=== PATIENT | male | born 1970 | race Caucasian/White ===

== ENCOUNTER 2022-04-22 11:10 | Inpatient (IN) | payer MEDICAID, SELFPAY ==
--- NOTE | ~2022-04-22 | CT_ITS ---
EXAMINATION: CT ANGIOGRAM OF THE CHEST WITH AND WITHOUT CONTRAST (CT PULMONARY ANGIOGRAM FOR PE) CLINICAL INFORMATION: Hemoptysis. COMPARISON: Chest radiographs dated 04/22/2022. TECHNIQUE: Prior to contrast administration, noncontrast localization images were obtained. Subsequently, multidetector volumetric imaging was performed from the thoracic inlet to below the diaphragms following the administration of 80 mL Omnipaque 350 intravenous contrast. No contrast reaction reported Sagittal, coronal, and MIP oblique sagittal reformatted images were obtained on the CT workstation, uploaded to PACS, and reviewed. This CT examination was performed using dose optimization techniques as appropriate, variously including the following: *Automated exposure control *Adjustment of mA and/or kV according to patient size (this includes techniques or standardized protocols for targeted exams where dose is matched to indication/reason for exam; i.e. extremities or head) *Use of iterative reconstruction technique Total exam dose-length product 361 mGy-cm FINDINGS: QUALITY OF STUDY/CONTRAST BOLUS: Satisfactory. PULMONARY ARTERIES: No central or segmental pulmonary emboli. THORACIC AORTA: No aneurysm or dissection. LUNG: No focal consolidation, nodules or masses. There is mild linear atelectasis within the lower lobes, right greater than left. PLEURA: No pleural effusion or pneumothorax. MEDIASTINUM: Normal heart size. No pericardial effusion. No hilar or mediastinal lymphadenopathy. No evidence of septal bowing or right heart strain. CHEST WALL/AXILLA: No axillary or internal mammary lymphadenopathy. OSSEOUS STRUCTURES: There is multi-level mild thoracic spondylosis and Schmorl's node formation. Schmorl's nodes are most pronounced of the T5 and T7 upper endplates. No acute or aggressive osseous abnormality is seen. UPPER ABDOMEN: Diffuse hepatic steatosis. No reflux of contrast into the hepatic veins to suggest elevated right heart pressures. The adrenal glands are unremarkable. CT/CT angio chest PE protocol IMPRESSION: 1. No pulmonary embolus or thoracic aortic aneurysm or dissection is seen. 2. There is bilateral lower lobe atelectatic change, right greater than left. No focal infiltrate is noted. 3. There is no pleural effusion or pneumothorax. 4. No thoracic lymphadenopathy or pleural effusion is seen. 5. No acute or aggressive osseous finding is noted. 6. There is diffuse hepatic steatosis. VTE: negative
--- NOTE | ~2022-04-22 | XR_ITS ---
EXAMINATION: XR CHEST CLINICAL INFORMATION: Injury. Chest pain. COMPARISON: None TECHNIQUE: 2 views of the chest were obtained. FINDINGS: Limited lateral view. No significant abnormality is noted involving the heart, lungs, mediastinum, bony thorax or soft tissues. XR/XR chest 2V IMPRESSION: Unremarkable examination.
[2022-04-22 10:52] VITALS: BP 114/86; PULSE 72; O2SAT 98
[2022-04-22 10:56] VITALS: BP 109/65; PULSE 71; RESP 18; TEMP 36.1; O2SAT 97; BMI 24.7
--- NOTE | 2022-04-22 16:56 | ECG_ITS ---
Test Reason : CHEST TIGHTNESS Blood Pressure : / mmHG Vent. Rate : 079 BPM Atrial Rate : 079 BPM P-R Int : 190 ms QRS Dur : 080 ms QT Int : 398 ms P-R-T Axes : 065 057 050 degrees QTc Int : 456 ms Normal sinus rhythm Septal infarct , age undetermined Abnormal ECG No previous ECGs available Referred By: Brisa Siddiqi Electronically Signed By:TRIPP DAVILA
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
[2022-04-22 17:09] VITALS: BP 107/68; PULSE 77; RESP 16; O2SAT 99
[2022-04-22 17:21] LABS: MANUAL DIFF FLAG NO
[2022-04-22 17:26] LABS: Basophils Absolute Auto 0.1 X10*3/uL (0.0-0.2); Basophils Percent Auto 1.3 % (0-2); Eosinophils Absolute Auto 0.1 X10*3/uL (0.0-0.4); Hematocrit 38.6 % (42.0-52.0); Hemoglobin 13.1 g/dl (14.0-18.0); Imm Gran Abs Auto 0.02 X10*3/uL (0.00-0.03); Imm Gran Pct Auto 0.4 % (0.0-0.4); Lymphocytes Absolute Auto 1.3 X10*3/uL (1.2-4.9); Lymphocytes Percent Auto 27.9 % (20-40); Mean Corpuscular HGB Conc 33.9 g/dl (31.0-36.0); Mean Corpuscular Hemoglobin 34.7 pg (27.0-33.0); Mean Corpuscular Volume 102.1 fL (80.0-98.0); Mean Platelet Volume 8.4 fL (9.4-12.4); Monocytes Absolute Auto 0.3 X10*3/uL (0.1-1.2); Monocytes Percent Auto 6.8 % (2-11); Neutrophils Absolute Auto 2.8 x10*3/uL (2.0-8.3); Neutrophils Percent Auto 61.6 % (45-73); Platelet Count 385 X10*3/uL (160-400); Red Blood Count 3.78 X10*6/uL (4.60-5.80); White Blood Count 4.6 X10*3/uL (4.8-10.8)
[2022-04-22 17:44] LABS: Troponin-I High Sensitivity 7.6 ng/L (<3.5-35.0)
[2022-04-22 17:47] LABS: Alanine Aminotransferase 54 U/L (0-40); Albumin Level 4.1 g/dL (3.5-5.0); Alkaline Phosphatase 68 U/L (39-117); Anion Gap 21 (12-20); Aspartate Amino Transferase 68 U/L (5-37); Bilirubin Direct 0.2 mg/dL (0.0-0.5); Bilirubin Total 0.5 mg/dL (0.0-1.0); Blood Urea Nitrogen 40 mg/dL (9-16); Calcium 8.9 mg/dL (8.4-10.2); Carbon Dioxide 16 mmol/L (22-29); Chloride 107 mmol/L (96-108); Creatinine Clr Calc Pharmacy 46.7; Estimated Glomerular Filt Rate 42; Glucose Random 80 mg/dL (60-115); INTERNATIONAL NORM RATIO 0.9 (0.9-1.1); Potassium 3.8 mmol/L (3.3-5.1); Prothrombin Time 10.1 SEC (10.0-13.1); Sodium 140 mmol/L (135-145); Total Protein 7.2 g/dL (6.5-8.0)
[2022-04-22 18:09] LABS: VBG Base Excess -8.9 mmol/L; VBG HCO3 15 mmol/L (22-26); VBG pCO2 30 mmHg; VBG pH 7.31 (7.32-7.43); VBG pO2 88 mmHg
[2022-04-22 18:14] LABS: Venous Blood Gas Refer to POC result
[2022-04-22 18:23] LABS: Appearance Urine Clear; Color Urine Yellow; Glucose Urine UA Negative (Negative); Leukocyte Esterase Urine Negative (Negative); Nitrite Urine Negative (Negative); PH 6.5 (5.0-8.0); Specific Gravity - Urine <= 1.005 (1.005-1.025); Urine Blood Negative (Negative); Urine Ketones Negative (Negative); Urine Protein Negative (Neg-Trace)
[2022-04-22 18:23] LABS: D Dimer High Sensitivity 1086 NG/ML
[2022-04-22 18:25] LABS: Acetaminophen LAB < 1 mcg/mL (<30); Ethanol 229 mg/dL; Lipase 61 U/L (8-78); Salicylate < 5.0 mg/dL (15-30)
[2022-04-22] MEDS: 0.9 % Sodium Chloride 2,000 ML 999 ML IV (20:03)
--- NOTE | 2022-04-22 20:06 | PC.NURSE ---
IV placed in left AC. NS 1l HUNG AND RUNNING.
[2022-04-22 20:07] VITALS: BP 110/68; PULSE 83; RESP 16; TEMP 36.6; O2SAT 100
[2022-04-22] MEDS: iohexoL 350 MG/ML 100 ML INFUS..BTL IV (20:41)
[2022-04-22 23:32] LABS: Anion Gap 23 (12-20); Blood Urea Nitrogen 32 mg/dL (9-16); Calcium 8.1 mg/dL (8.4-10.2); Carbon Dioxide 12 mmol/L (22-29); Chloride 111 mmol/L (96-108); Creatinine Clr Calc Pharmacy 58.9; Estimated Glomerular Filt Rate 56; Glucose Random 61 mg/dL (60-115); Potassium 4.7 mmol/L (3.3-5.1); Sodium 141 mmol/L (135-145)
[2022-04-22 23:36] LABS: Troponin-I High Sensitivity 10.8 ng/L (<3.5-35.0)
[2022-04-23 00:24] LABS: Acetone, serum QL Negative (Negative)
[2022-04-23] MEDS: Dextrose 5 % and 0.45 % NaCl 1,000 ML 250 ML IVCONT (00:42)
[2022-04-23 00:47] VITALS: BP 99/63; PULSE 83; RESP 17; O2SAT 96
[2022-04-23] MEDS: Thiamine HCL 100 MG in 0.9 % Sodium Chloride 100 ML 202 MG IV (00:47)
[2022-04-23] MEDS: Magnesium Sulfate/H2O 2 GM/50 ML PIGGYBACK IV ×2 (00:52→17:43)
[2022-04-23 01:01] LABS: Lactic Acid 3.1 mmol/L (0.5-2.0)
[2022-04-23 01:02] LABS: COVID-19 Test Negative (Negative)
[2022-04-23 01:02] LABS: Magnesium 1.2 mg/dL (1.6-2.6)
[2022-04-23] MEDS: Dextrose 5 % and 0.9 % NaCl 1,000 ML 100 ML IVCONT ×3 (01:32→14:48)
[2022-04-23 02:04] LABS: Reflex Lactate? Lactic Acid Added
[2022-04-23 03:02] LABS: ~Lactic Acid-LAB USE ONLY 2.8 mmol/L (0.5-2.0)
--- NOTE | 2022-04-23 03:02 | PC.NURSE ---
critical lactic report to provider.
[2022-04-23 04:39] LABS: Reflex Lactate? 2 Y
[2022-04-23 04:54] LABS: MANUAL DIFF FLAG NO
[2022-04-23 04:55] LABS: Basophils Percent Auto 0.7 % (0-2); Eosinophils Absolute Auto 0.1 X10*3/uL (0.0-0.4); Eosinophils Percent Auto 1.3 % (0-4); Hematocrit 34.1 % (42.0-52.0); Hemoglobin 11.8 g/dl (14.0-18.0); Imm Gran Abs Auto 0.01 X10*3/uL (0.00-0.03); Imm Gran Pct Auto 0.2 % (0.0-0.4); Lymphocytes Percent Auto 16.9 % (20-40); Mean Corpuscular HGB Conc 34.6 g/dl (31.0-36.0); Mean Corpuscular Hemoglobin 35.1 pg (27.0-33.0); Mean Corpuscular Volume 101.5 fL (80.0-98.0); Mean Platelet Volume 8.5 fL (9.4-12.4); Monocytes Absolute Auto 0.4 X10*3/uL (0.1-1.2); Monocytes Percent Auto 6.7 % (2-11); Neutrophils Absolute Auto 4.5 x10*3/uL (2.0-8.3); Neutrophils Percent Auto 74.2 % (45-73); Platelet Count 332 X10*3/uL (160-400); Red Blood Count 3.36 X10*6/uL (4.60-5.80); Red Cell Distribution Width 16.2 % (11.0-16.0); White Blood Count 6.1 X10*3/uL (4.8-10.8)
[2022-04-23 05:08] LABS: Anion Gap 20 (12-20); Blood Urea Nitrogen 27 mg/dL (9-16); Calcium 8.3 mg/dL (8.4-10.2); Carbon Dioxide 15 mmol/L (22-29); Chloride 112 mmol/L (96-108); Creatinine Clr Calc Pharmacy 64.1; Estimated Glomerular Filt Rate > 60; Glucose Random 81 mg/dL (60-115); Potassium 4.2 mmol/L (3.3-5.1); Sodium 143 mmol/L (135-145)
[2022-04-23 05:10] LABS: ~Lactic Acid-LAB USE ONLY 2.2 mmol/L (0.5-2.0)
[2022-04-23 05:22] VITALS: BP 131/77; PULSE 96; RESP 20; TEMP 37.1; O2SAT 97
--- NOTE | 2022-04-23 06:11 | PM.IMHP ---
History of Present Illness Date of Service: 04/23/22 Chief Complaint: chest pain 52-year-old male with past medical history of hypertension as well as alcohol abuse presents to the hospital with complaints of left-sided chest pain that has been constant for the past 3-4 weeks. The pain is sharp, stabbing, nonradiating, no relieving or exacerbating factors. Patient reports nausea with no vomiting, he reports that he drinks about 16 oz beer daily, he is currently jittery and anxious but denies withdrawing, his last drink was over 12 hours ago, he reports no shortness of breath, no cough, no abdominal pain, no diarrhea constipation, no urinary symptoms and no lower extremity edema. On arrival to the ED patient hemodynamically stable with no significant abnormal vitals Labs are significant for WBC count of 4.6, hemoglobin 13.1, hematocrit 30.6, MCV of 102, pH of 7.31, bicarb of 15, positive anion gap, BUN 40, creatinine of 1.69 with a baseline of less than 1, lactic acid of 3.1, AST of 68, ALT of 54, patient started on IV fluids with slight worsening of his bicarb, but then switched to D5 fluid with improvement in his bicarb Review of Systems Review of Systems: Yes all other systems are reviewed and are negative [facility] Medical History (Updated 04/23/22 @ 06:24 by Med Cazares MD) History of alcohol abuse Hypertension Rib fracture Family History (Updated 04/23/22 @ 06:23 by Med Cazares MD) Other No family history of coronary artery disease Surgical History (Updated 04/23/22 @ 06:23 by Med Cazares MD) No pertinent past surgical history Social History (Updated 04/23/22 @ 06:23 by Med Cazares MD) Alcohol intake: current Alcohol intake frequency: 0-2 drinks per day Alcohol type: beer Tobacco use type: Cigarette Cigarettes Per Day: 5 Use of substances other than those prescribed or required for medical reasons: No Advance Directives: No Advance Directives Information Provided: Yes Meds Allergies Allergy/AdvReac Type Severity Reaction Status Date / Time No Known Allergies Allergy Verified 04/22/22 10:52 Active Medications: Current Medications Acetaminophen (Acetaminophen 325 Mg Tablet) 650 mg PO Q6H PRN PRN Reason: Pain, Mild (Pain Scale 1-3) Docusate Sodium (Docusate Sodium 100 Mg Capsule) 100 mg PO DAILY PRN PRN Reason: Constipation Enoxaparin Sodium (Enoxaparin Sodium 40 Mg/0.4 Ml Syringe) 40 mg SUBCUT Q24H [facility] Folic Acid (Folic Acid 1 Mg Tablet) 1 mg PO DAILY [facility] Dextrose/Sodium Chloride (D51/2ns) 1,000 mls @ 250 mls/hr IVCONT .Q4H [facility] Last Admin: 04/23/22 05:14 Dose: Not Given Dextrose/Sodium Chloride (D5ns) 1,000 mls @ 100 mls/hr IVCONT .Q10H [facility] Last Admin: 04/23/22 01:32 Dose: 100 mls/hr Ondansetron HCl (Ondansetron Hcl 4 Mg/2 Ml Vial) 4 mg IVPUSH Q8H PRN PRN Reason: Nausea and Vomiting Pharmacy Consult (Consult Rx Perform Med Rec) 1 each MISCELLANE ONCE PRN PRN Reason: Consult order Sodium Chloride (0.9 % Sodium Chloride Flush 3 Ml Syringe) 3 ml IVFLUSH QSHIFT [facility] Thiamine HCl (Thiamine Hcl 100 Mg Tablet) 100 mg PO DAILY [facility] Physical Exam Vital Signs and Narrative: Vital Signs: Last Vital Signs Temp 98.8 F 04/23/22 05:22 Pulse 96 04/23/22 05:22 Resp 20 04/23/22 05:22 BP 131/77 04/23/22 05:22 Pulse Ox 97 04/23/22 05:22 O2 Del Method 04/23/22 05:22 BMI result Body Mass Index 24.7 Results Labs CBC and Chem 7: 04/23/22 04:51 04/23/22 04:51 Labs: Laboratory Results - last 24 hr 04/22/22 04/22/22 04/22/22 17:13 17:13 17:13 MCV 102.1 H MCH 34.7 H MCHC 33.9 RDW 16.0 Plt Count 385 MPV 8.4 L Immature Gran % (Auto) 0.4 Neut % (Auto) 61.6 Lymph % (Auto) 27.9 [place] % (Auto) 6.8 Eos % (Auto) 2.0 Baso % (Auto) 1.3 Lymph # (Auto) 1.3 [place] # (Auto) 0.3 Eos # (Auto) 0.1 Baso # (Auto) 0.1 Abs Immat Gran (auto) 0.02 Absolute Neuts (auto) 2.8 Absolute Nucleated RBC 0.000 Nucleated RBC % (auto) 0.0 PT 10.1 INR 0.9 D-Dimer High Sensitivty 1086 VBG pH VBG pCO2 VBG pO2 VBG HCO3 VBG O2 Saturation VBG Base Excess Anion Gap 21 H Estim Creat Clear Calc 46.7 Estimated GFR 42 Random Glucose 80 Lactic Acid Lactic Acid F/U @ 2Hr Lactic Acid F/U @ 4Hr Calcium 8.9 Phosphorus Magnesium Total Bilirubin 0.5 Direct Bilirubin 0.2 AST 68 H ALT 54 H Alkaline Phosphatase 68 Total Creatine Kinase 138 Total Protein 7.2 Albumin 4.1 Lipase 61 Urine Color Urine Appearance Urine pH Ur Specific [place] Urine Protein Urine Glucose (UA) Urine Ketones Urine Blood Urine Nitrite Ur Leukocyte Esterase Salicylates < 5.0 L Acetaminophen < 1 Ethyl Alcohol 229 Acetone, Qual COVID-19 (ANA) COVID-19 [employer] 04/22/22 04/22/22 04/22/22 17:58 18:04 22:59 MCV MCH MCHC RDW Plt Count MPV Immature Gran % (Auto) Neut % (Auto) Lymph % (Auto) [place] % (Auto) Eos % (Auto) Baso % (Auto) Lymph # (Auto) [place] # (Auto) Eos # (Auto) Baso # (Auto) Abs Immat Gran (auto) Absolute Neuts (auto) Absolute Nucleated RBC Nucleated RBC % (auto) PT INR D-Dimer High Sensitivty VBG pH 7.31 L VBG pCO2 30 VBG pO2 88 VBG HCO3 15 L VBG O2 Saturation 95.0 VBG Base Excess -8.9 Anion Gap 23 H Estim Creat Clear Calc 58.9 Estimated GFR 56 Random Glucose 61 Lactic Acid Lactic Acid F/U @ 2Hr Lactic Acid F/U @ 4Hr Calcium 8.1 L D Phosphorus Magnesium Total Bilirubin Direct Bilirubin AST ALT Alkaline Phosphatase Total Creatine Kinase Total Protein Albumin Lipase Urine Color Yellow Urine Appearance Clear Urine pH 6.5 Ur Specific [place] <= 1.005 Urine Protein Negative Urine Glucose (UA) Negative Urine Ketones Negative Urine Blood Negative Urine Nitrite Negative Ur Leukocyte Esterase Negative Salicylates Acetaminophen Ethyl Alcohol Acetone, Qual COVID-19 (ANA) COVID-19 [employer] 04/23/22 04/23/22 04/23/22 00:00 00:00 00:33 MCV MCH MCHC RDW Plt Count MPV Immature Gran % (Auto) Neut % (Auto) Lymph % (Auto) [place] % (Auto) Eos % (Auto) Baso % (Auto) Lymph # (Auto) [place] # (Auto) Eos # (Auto) Baso # (Auto) Abs Immat Gran (auto) Absolute Neuts (auto) Absolute Nucleated RBC Nucleated RBC % (auto) PT INR D-Dimer High Sensitivty VBG pH VBG pCO2 VBG pO2 VBG HCO3 VBG O2 Saturation VBG Base Excess Anion Gap Estim Creat Clear Calc Estimated GFR Random Glucose Lactic Acid 3.1 H* Lactic Acid F/U @ 2Hr Lactic Acid F/U @ 4Hr Calcium Phosphorus 3.0 Magnesium 1.2 L* Total Bilirubin Direct Bilirubin AST ALT Alkaline Phosphatase Total Creatine Kinase Total Protein Albumin Lipase Urine Color Urine Appearance Urine pH Ur Specific [place] Urine Protein Urine Glucose (UA) Urine Ketones Urine Blood Urine Nitrite Ur Leukocyte Esterase Salicylates Acetaminophen Ethyl Alcohol Acetone, Qual Negative COVID-19 (ANA) Negative COVID-19 Clin Com See Note 04/23/22 04/23/22 04/23/22 02:34 04:51 04:51 MCV 101.5 H MCH 35.1 H MCHC 34.6 RDW 16.2 H Plt Count 332 MPV 8.5 L Immature Gran % (Auto) 0.2 Neut % (Auto) 74.2 H Lymph % (Auto) 16.9 L [place] % (Auto) 6.7 Eos % (Auto) 1.3 Baso % (Auto) 0.7 Lymph # (Auto) 1.0 L [place] # (Auto) 0.4 Eos # (Auto) 0.1 Baso # (Auto) 0.0 Abs Immat Gran (auto) 0.01 Absolute Neuts (auto) 4.5 Absolute Nucleated RBC 0.000 Nucleated RBC % (auto) 0.0 PT INR D-Dimer High Sensitivty VBG pH VBG pCO2 VBG pO2 VBG HCO3 VBG O2 Saturation VBG Base Excess Anion Gap 20 Estim Creat Clear Calc 64.1 Estimated GFR > 60 Random Glucose 81 Lactic Acid Lactic Acid F/U @ 2Hr 2.8 H* Lactic Acid F/U @ 4Hr Calcium 8.3 L Phosphorus Magnesium Total Bilirubin Direct Bilirubin AST ALT Alkaline Phosphatase Total Creatine Kinase Total Protein Albumin Lipase Urine Color Urine Appearance Urine pH Ur Specific [place] Urine Protein Urine Glucose (UA) Urine Ketones Urine Blood Urine Nitrite Ur Leukocyte Esterase Salicylates Acetaminophen Ethyl Alcohol Acetone, Qual COVID-19 (ANA) COVID-19 [employer] Com 04/23/22 04:51 MCV MCH MCHC RDW Plt Count MPV Immature Gran % (Auto) Neut % (Auto) Lymph % (Auto) [place] % (Auto) Eos % (Auto) Baso % (Auto) Lymph # (Auto) [place] # (Auto) Eos # (Auto) Baso # (Auto) Abs Immat Gran (auto) Absolute Neuts (auto) Absolute Nucleated RBC Nucleated RBC % (auto) PT INR D-Dimer High Sensitivty VBG pH VBG pCO2 VBG pO2 VBG HCO3 VBG O2 Saturation VBG Base Excess Anion Gap Estim Creat Clear Calc Estimated GFR Random Glucose Lactic Acid Lactic Acid F/U @ 2Hr Lactic Acid F/U @ 4Hr 2.2 H* Calcium Phosphorus Magnesium Total Bilirubin Direct Bilirubin AST ALT Alkaline Phosphatase Total Creatine Kinase Total Protein Albumin Lipase Urine Color Urine Appearance Urine pH Ur Specific [place] Urine Protein Urine Glucose (UA) Urine Ketones Urine Blood Urine Nitrite Ur Leukocyte Esterase Salicylates Acetaminophen Ethyl Alcohol Acetone, Qual COVID-19 (ANA) COVID-19 Clin Com Imaging Radiologist's Impressions: Impressions Chest X-Ray 04/22/22 11:12 IMPRESSION: Unremarkable examination. Chest CTA 04/22/22 20:45 IMPRESSION: 1. No pulmonary embolus or thoracic aortic aneurysm or dissection is seen. 2. There is bilateral lower lobe atelectatic change, right greater than left. No focal infiltrate is noted. 3. There is no pleural effusion or pneumothorax. 4. No thoracic lymphadenopathy or pleural effusion is seen. 5. No acute or aggressive osseous finding is noted. 6. There is diffuse hepatic steatosis. VTE: negative Assessment and Plan (1) Chest pain: Status: Acute (2) Alcoholic ketoacidosis: Status: Acute (3) Metabolic acidosis, IAG, accumulation of organic acids: Status: Acute Plan 52-year-old male with past medical history of alcohol abuse hypertension presents to the hospital with chest pain found to have an alcoholic ketoacidosis # chest pain - noncardiac - no EKG changes - troponin negative x2 - monitor # alcoholic ketoacidosis - anion gap, lactic acidosis, low bicarb - will treat with IV fluids - received thiamine # metabolic acidosis - secondary to above - treat with IV fluids - follow BMP # alcohol abuse with withdrawal - started on phenobarb - thiamine and folic acid supplement DVT prophylaxis: Lovenox given the acute alcoholic ketoacidosis and requirement for IV fluid patient require minimum 2 night hospital stay for further management and monitoring Quality Stroke Does the patient have a stroke diagnosis?: No VTE Prior VTE?: No VTE Risk Level:: Medical - moderate - high VTE Device Contraindication: Treatment Not Indicated VTE Drug Contraindication: N/A - Med Ordered
--- NOTE | 2022-04-23 06:29 | PC.NURSE ---
pt sleeping in bed with lights off per request. CIWA performed at this time. with total score being a 4 due to moderate muscle tremors while holding arms out in front of patient. skin PWD, a&o x3. pt states he feels he is managing his withdraw symptoms well. states no pain at this time.
[2022-04-23 07:04] LABS: VBG Base Excess -5.5 mmol/L; VBG HCO3 16 mmol/L (22-26); VBG pCO2 23 mmHg; VBG pH 7.45 (7.32-7.43); VBG pO2 128 mmHg
[2022-04-23 07:04] LABS: Venous Blood Gas Refer to POC result
[2022-04-23 07:24] LABS: Anion Gap 18 (12-20); Blood Urea Nitrogen 26 mg/dL (9-16); Calcium 8.2 mg/dL (8.4-10.2); Carbon Dioxide 17 mmol/L (22-29); Chloride 112 mmol/L (96-108); Creatinine Clr Calc Pharmacy 64.1; Estimated Glomerular Filt Rate > 60; Glucose Random 96 mg/dL (60-115); Potassium 4.3 mmol/L (3.3-5.1); Sodium 143 mmol/L (135-145)
[2022-04-23] MEDS: PHENobarbitaL sodium 130 MG/ML IM ONCE 320 MG IM (07:53)
[2022-04-23 07:56] VITALS: BP 139/90; PULSE 101; RESP 17; O2SAT 96
[2022-04-23] MEDS: Enoxaparin Sodium 40 MG/0.4 ML SYRINGE SUBCUT (09:23)
[2022-04-23] MEDS: Folic Acid 1 MG TABLET PO (09:23)
[2022-04-23] MEDS: Thiamine HCL 100 MG TABLET PO (09:23)
--- NOTE | 2022-04-23 09:38 | PHA.MEDREC ---
Pharmacy Consult ? Medication Reconciliation Pharmacy has completed the medication reconciliation. Patient had all prescriptions with him in his back. Verified with patient all meds. No remarkable changes. Patient no longer taking lidocaine patches for ribs.
[2022-04-23 09:56] LABS: Magnesium 1.5 mg/dL (1.6-2.6)
[2022-04-23] MEDS: PHENobarbitaL sodium 130 MG/ML VIAL IM Q3Hx2 240 MG IM ×2 (12:12→14:25)
--- NOTE | 2022-04-23 14:54 | MHC.CM.PN ---
PATIENT LIVES IN TRANSITIONAL HOUSING HCP-PT WAS EDUCATED, DECLINED TO COMPLETE AT THIS TIME INDEPENDENT AT HOME AND COMMUNITY DENIES USE OF DME OR RECEIVING HOME SERVICES [facility] PCP: [facility]: WILL NEED BUS PASS IF DAD CAN'T ADOBE B[employer]ER D/C PLAN: HOME SELF-CARE vs CARE TEAM RECOMMENDATION
[2022-04-23 15:02] VITALS: BP 139/90; PULSE 92; RESP 16; TEMP 36.8; O2SAT 97
--- NOTE | 2022-04-23 15:25 | P.EN_ITS ---
Event Note Date of Service: 04/23/22 Event Note: day hospitalist update S denies tremors minimizes drinking, stating he drinks only 16 oz a day, then states only a half glass of vodka a day O VS- BP 139/90, P 92, R 16, T 98.3, SaO2 97 on RA gen- facial flushing, NAD neck- supple lungs- CTAB CV- RRR no m/r/g abd- soft/NT ext- no edema Laboratory Results - last 24 hr 04/22/22 04/22/22 04/22/22 17:13 17:13 17:13 WBC 4.6 L RBC 3.78 L Hgb 13.1 L Hct 38.6 L MCV 102.1 H MCH 34.7 H MCHC 33.9 RDW 16.0 Plt Count 385 MPV 8.4 L Immature Gran % (Auto) 0.4 Neut % (Auto) 61.6 Lymph % (Auto) 27.9 [place] % (Auto) 6.8 Eos % (Auto) 2.0 Baso % (Auto) 1.3 Lymph # (Auto) 1.3 [place] # (Auto) 0.3 Eos # (Auto) 0.1 Baso # (Auto) 0.1 Abs Immat Gran (auto) 0.02 Absolute Neuts (auto) 2.8 Absolute Nucleated RBC 0.000 Nucleated RBC % (auto) 0.0 PT 10.1 INR 0.9 D-Dimer High Sensitivty 1086 VBG pH VBG pCO2 VBG pO2 VBG HCO3 VBG O2 Saturation VBG Base Excess Sodium 140 Potassium 3.8 Chloride 107 Carbon Dioxide 16 L Anion Gap 21 H BUN 40 H Creatinine 1.69 H Estim Creat Clear Calc 46.7 Estimated GFR 42 Random Glucose 80 Lactic Acid Lactic Acid F/U @ 2Hr Lactic Acid F/U @ 4Hr Calcium 8.9 Phosphorus Magnesium Total Bilirubin 0.5 Direct Bilirubin 0.2 AST 68 H ALT 54 H Alkaline Phosphatase 68 Total Creatine Kinase 138 Troponin I High Sens Total Protein 7.2 Albumin 4.1 Lipase 61 Urine Color Urine Appearance Urine pH Ur Specific [place] Urine Protein Urine Glucose (UA) Urine Ketones Urine Blood Urine Nitrite Ur Leukocyte Esterase Salicylates < 5.0 L Acetaminophen < 1 Ethyl Alcohol 229 Acetone, Qual COVID-19 (ANA) COVID-19 Clin Com 04/22/22 04/22/2222 17:13 17:58 18:04 WBC RBC Hgb Hct MCV MCH MCHC RDW Plt Count MPV Immature Gran % (Auto) Neut % (Auto) Lymph % (Auto) [place] % (Auto) Eos % (Auto) Baso % (Auto) Lymph # (Auto) [place] # (Auto) Eos # (Auto) Baso # (Auto) Abs Immat Gran (auto) Absolute Neuts (auto) Absolute Nucleated RBC Nucleated RBC % (auto) PT INR D-Dimer High Sensitivty VBG pH 7.31 L VBG pCO2 30 VBG pO2 88 VBG HCO3 15 L VBG O2 Saturation 95.0 VBG Base Excess -8.9 Sodium Potassium Chloride Carbon Dioxide Anion Gap BUN Creatinine Estim Creat Clear Calc Estimated GFR Random Glucose Lactic Acid Lactic Acid F/U @ 2Hr Lactic Acid F/U @ 4Hr Calcium Phosphorus Magnesium Total Bilirubin Direct Bilirubin AST ALT Alkaline Phosphatase Total Creatine Kinase Troponin I High Sens 7.6 Total Protein Albumin Lipase Urine Color Yellow Urine Appearance Clear Urine pH 6.5 Ur Specific [place] <= 1.005 Urine Protein Negative Urine Glucose (UA) Negative Urine Ketones Negative Urine Blood Negative Urine Nitrite Negative Ur Leukocyte Esterase Negative Salicylates Acetaminophen Ethyl Alcohol Acetone, Qual COVID-19 (ANA) COVID-19 Clin Com 04/22/22 04/22/22 04/23/22 22:59 22:59 00:00 WBC RBC Hgb Hct MCV MCH MCHC RDW Plt Count MPV Immature Gran % (Auto) Neut % (Auto) Lymph % (Auto) [place] % (Auto) Eos % (Auto) Baso % (Auto) Lymph # (Auto) [place] # (Auto) Eos # (Auto) Baso # (Auto) Abs Immat Gran (auto) Absolute Neuts (auto) Absolute Nucleated RBC Nucleated RBC % (auto) PT INR D-Dimer High Sensitivty VBG pH VBG pCO2 VBG pO2 VBG HCO3 VBG O2 Saturation VBG Base Excess Sodium 141 Potassium 4.7 D Chloride 111 H Carbon Dioxide 12 L Anion Gap 23 H BUN 32 H Creatinine 1.34 Estim Creat Clear Calc 58.9 Estimated GFR 56 Random Glucose 61 Lactic Acid 3.1 H* Lactic Acid F/U @ 2Hr Lactic Acid F/U @ 4Hr Calcium 8.1 L D Phosphorus Magnesium Total Bilirubin Direct Bilirubin AST ALT Alkaline Phosphatase Total Creatine Kinase Troponin I High Sens 10.8 Total Protein Albumin Lipase Urine Color Urine Appearance Urine pH Ur Specific [place] Urine Protein Urine Glucose (UA) Urine Ketones Urine Blood Urine Nitrite Ur Leukocyte Esterase Salicylates Acetaminophen Ethyl Alcohol Acetone, Qual COVID-19 (ANA) COVID-19 Clin Com 04/23/22 04/23/22 04/23/22 00:00 00:33 02:34 WBC RBC Hgb Hct MCV MCH MCHC RDW Plt Count MPV Immature Gran % (Auto) Neut % (Auto) Lymph % (Auto) [place] % (Auto) Eos % (Auto) Baso % (Auto) Lymph # (Auto) [place] # (Auto) Eos # (Auto) Baso # (Auto) Abs Immat Gran (auto) Absolute Neuts (auto) Absolute Nucleated RBC Nucleated RBC % (auto) PT INR D-Dimer High Sensitivty VBG pH VBG pCO2 VBG pO2 VBG HCO3 VBG O2 Saturation VBG Base Excess Sodium Potassium Chloride Carbon Dioxide Anion Gap BUN Creatinine Estim Creat Clear Calc Estimated GFR Random Glucose Lactic Acid Lactic Acid F/U @ 2Hr 2.8 H* Lactic Acid F/U @ 4Hr Calcium Phosphorus 3.0 Magnesium 1.2 L* Total Bilirubin Direct Bilirubin AST ALT Alkaline Phosphatase Total Creatine Kinase Troponin I High Sens Total Protein Albumin Lipase Urine Color Urine Appearance Urine pH Ur Specific [place] Urine Protein Urine Glucose (UA) Urine Ketones Urine Blood Urine Nitrite Ur Leukocyte Esterase Salicylates Acetaminophen Ethyl Alcohol Acetone, Qual Negative COVID-19 (ANA) Negative COVID-19 Clin Com See Note 04/23/22 04/23/22 04/23/22 04:51 04:51 04:51 WBC 6.1 RBC 3.36 L Hgb 11.8 L Hct 34.1 L MCV 101.5 H MCH 35.1 H MCHC 34.6 RDW 16.2 H Plt Count 332 MPV 8.5 L Immature Gran % (Auto) 0.2 Neut % (Auto) 74.2 H Lymph % (Auto) 16.9 L [place] % (Auto) 6.7 Eos % (Auto) 1.3 Baso % (Auto) 0.7 Lymph # (Auto) 1.0 L [place] # (Auto) 0.4 Eos # (Auto) 0.1 Baso # (Auto) 0.0 Abs Immat Gran (auto) 0.01 Absolute Neuts (auto) 4.5 Absolute Nucleated RBC 0.000 Nucleated RBC % (auto) 0.0 PT INR D-Dimer High Sensitivty VBG pH VBG pCO2 VBG pO2 VBG HCO3 VBG O2 Saturation VBG Base Excess Sodium 143 Potassium 4.2 Chloride 112 H Carbon Dioxide 15 L Anion Gap 20 BUN 27 H Creatinine 1.23 Estim Creat Clear Calc 64.1 Estimated GFR > 60 Random Glucose 81 Lactic Acid Lactic Acid F/U @ 2Hr Lactic Acid F/U @ 4Hr 2.2 H* Calcium 8.3 L Phosphorus Magnesium Total Bilirubin Direct Bilirubin AST ALT Alkaline Phosphatase Total Creatine Kinase Troponin I High Sens Total Protein Albumin Lipase Urine Color Urine Appearance Urine pH Ur Specific [place] Urine Protein Urine Glucose (UA) Urine Ketones Urine Blood Urine Nitrite Ur Leukocyte Esterase Salicylates Acetaminophen Ethyl Alcohol Acetone, Qual COVID-19 (ANA) COVID-19 Clin Com 04/23/22 04/23/22 06:56 06:59 WBC RBC Hgb Hct MCV MCH MCHC RDW Plt Count MPV Immature Gran % (Auto) Neut % (Auto) Lymph % (Auto) [place] % (Auto) Eos % (Auto) Baso % (Auto) Lymph # (Auto) [place] # (Auto) Eos # (Auto) Baso # (Auto) Abs Immat Gran (auto) Absolute Neuts (auto) Absolute Nucleated RBC Nucleated RBC % (auto) PT INR D-Dimer High Sensitivty VBG pH 7.45 H VBG pCO2 23 VBG pO2 128 VBG HCO3 16 L VBG O2 Saturation 100.0 VBG Base Excess -5.5 Sodium 143 Potassium 4.3 Chloride 112 H Carbon Dioxide 17 L Anion Gap 18 BUN 26 H Creatinine 1.23 Estim Creat Clear Calc 64.1 Estimated GFR > 60 Random Glucose 96 Lactic Acid Lactic Acid F/U @ 2Hr Lactic Acid F/U @ 4Hr Calcium 8.2 L Phosphorus Magnesium 1.5 L Total Bilirubin Direct Bilirubin AST ALT Alkaline Phosphatase Total Creatine Kinase Troponin I High Sens Total Protein Albumin Lipase Urine Color Urine Appearance Urine pH Ur Specific [place] Urine Protein Urine Glucose (UA) Urine Ketones Urine Blood Urine Nitrite Ur Leukocyte Esterase Salicylates Acetaminophen Ethyl Alcohol Acetone, Qual COVID-19 (ANA) COVID-19 Clin Com A/P hospital d#1 52yo M with HTN, AUD p/w chest pain, admitted for EtOH ketoacidosis # AKA - continue IV fluid hydration, recheck BMP in AM # hypoMg - replete, recheck level in AM # atypical chest pain - ACS ruled out by negative Tn-I, no EKG changes; pain has resolved 52-year-old male with past medical history of alcohol abuse hypertension presents to the hospital with chest pain found to have an alcoholic ketoacidosis # AUD with high risk for withdrawal - CARE Team + Addiction Med consults - B vitamin supplementation # VTE ppx: LMWH In my clinical judgment, the patient requires continued hospitalization for the following reasons: acidosis requiring IV hydration
[2022-04-23] MEDS: 0.9 % Sodium Chloride Flush 3 ML SYRINGE IVFLUSH ×2 (17:39→23:58)
--- NOTE | 2022-04-23 19:33 | PC.NURSE ---
report received from dayshift RN. pt laying comfortably on stretcher watching tv. no current complaints or pain noted. pt given ice water, call foote within reach. will continue to monitor
[2022-04-23] MEDS: PHENobarbitaL 15 MG TABLET 45 MG PO (22:56)
[2022-04-23 23:50] VITALS: BMI 24.7
[2022-04-23 23:58] VITALS: BP 166/100; PULSE 98; RESP 16; TEMP 36.6; O2SAT 97
[2022-04-24] MEDS: Dextrose 5 % and 0.9 % NaCl 1,000 ML 200 ML IVCONT ×2 (00:31→05:13)
[2022-04-24 04:00] VITALS: BP 135/93; PULSE 77; RESP 16; TEMP 36.6; O2SAT 96
[2022-04-24 07:08] LABS: Alanine Aminotransferase 33 U/L (0-40); Albumin Level 3.4 g/dL (3.5-5.0); Alkaline Phosphatase 52 U/L (39-117); Anion Gap 12 (12-20); Aspartate Amino Transferase 49 U/L (5-37); Bilirubin Direct 0.4 mg/dL (0.0-0.5); Bilirubin Total 0.7 mg/dL (0.0-1.0); Blood Urea Nitrogen 14 mg/dL (9-16); Calcium 7.6 mg/dL (8.4-10.2); Carbon Dioxide 24 mmol/L (22-29); Chloride 108 mmol/L (96-108); Creatinine Clr Calc Pharmacy 78.1; Estimated Glomerular Filt Rate > 60; Glucose Random 120 mg/dL (60-115); Potassium 3.4 mmol/L (3.3-5.1); Sodium 141 mmol/L (135-145)
[2022-04-24 07:17] LABS: Magnesium 1.3 mg/dL (1.6-2.6)
[2022-04-24 07:35] VITALS: BP 135/91; PULSE 81; RESP 17; TEMP 36.4; O2SAT 97
[2022-04-24] MEDS: allopurinoL 300 MG TABLET PO (07:59)
[2022-04-24] MEDS: amLODIPine Besylate 10 MG TABLET PO (07:59)
[2022-04-24] MEDS: Thiamine HCL 100 MG TABLET PO (07:59)
[2022-04-24] MEDS: Magnesium Oxide 400 MG TABLET PO ×2 (07:59→16:35)
[2022-04-24] MEDS: Magnesium Sulfate/H2O 2 GM/50 ML PIGGYBACK IV (07:59)
[2022-04-24] MEDS: Folic Acid 1 MG TABLET PO (07:59)
[2022-04-24] MEDS: lisinopriL 20 MG TABLET PO (07:59)
[2022-04-24] MEDS: Cyanocobalamin (Vitamin B-12) 1,000 MCG TABLET 1000 MCG PO (07:59)
[2022-04-24] MEDS: atenoloL 25 MG TABLET PO (07:59)
[2022-04-24] MEDS: Thiamine HCL 100 MG TABLET 50 MG PO (07:59)
[2022-04-24] MEDS: PHENobarbitaL 15 MG TABLET 45 MG PO ×2 (08:00→20:22)
[2022-04-24] MEDS: Enoxaparin Sodium 40 MG/0.4 ML SYRINGE SUBCUT (08:00)
[2022-04-24] MEDS: Cholecalciferol (Vitamin D3) 25 MCG TABLET PO (08:00)
[2022-04-24] MEDS: 0.9 % Sodium Chloride Flush 3 ML SYRINGE IVFLUSH ×3 (08:04→23:11)
[2022-04-24 09:28] LABS: Folate 3.7 ng/mL (> or = 4.0); Vitamin B12 772 pg/mL (200-900)
[2022-04-24 11:30] VITALS: BP 115/72; PULSE 78; RESP 18; TEMP 37.1; O2SAT 96
[2022-04-24] MEDS: polyethylene glycoL 3350 17 GM POWD.PACK PO (11:48)
--- NOTE | 2022-04-24 11:59 | HO.PM.IMPN ---
Subjective Subjective Date of Service: 04/24/22 Interval History: denies tremors no N/V no abd pain Review of Systems Review of Systems: Yes all other systems are reviewed and are negative Physical Exam Vital Signs: Vital Signs: Last Vital Signs Temp 98.7 F 04/24/22 11:30 Pulse 78 04/24/22 11:30 Resp 18 04/24/22 11:30 BP 115/72 04/24/22 11:30 Pulse Ox 96 04/24/22 11:30 O2 Del Method 04/24/22 11:30 BMI result Body Mass Index 24.7 gen- facial flushing, NAD neck- supple lungs- CTAB CV- RRR no m/r/g abd- soft/NT ext- no edema Objective Data Active Medications Acetaminophen (Acetaminophen 325 Mg Tablet) 650 mg PO Q6H PRN PRN Reason: Pain, Mild (Pain Scale 1-3) Allopurinol (Allopurinol 300 Mg Tablet) 300 mg PO DAILY [facility] Last Admin: 04/24/22 07:59 Dose: 300 mg Documented By: ANUSHA Amlodipine Besylate (Amlodipine Besylate 10 Mg Tablet) 10 mg PO DAILY [facility]; Protocol Last Admin: 04/24/22 07:59 Dose: 10 mg Documented By: ANUSHA Atenolol (Atenolol 25 Mg Tablet) 25 mg PO DAILY [facility]; Protocol Last Admin: 04/24/22 07:59 Dose: 25 mg Documented By: ANUSHA Cyanocobalamin (Cyanocobalamin (Vitamin B-12) 1,000 Mcg Tablet) 1,000 mcg PO DAILY [facility] Last Admin: 04/24/22 07:59 Dose: 1,000 mcg Documented By: ANUSHA Docusate Sodium (Docusate Sodium 100 Mg Capsule) 100 mg PO DAILY PRN PRN Reason: Constipation Enoxaparin Sodium (Enoxaparin Sodium 40 Mg/0.4 Ml Syringe) 40 mg SUBCUT Q24H [facility] Last Admin: 04/24/22 08:00 Dose: 40 mg Documented By: ANUSHA Folic Acid (Folic Acid 1 Mg Tablet) 1 mg PO DAILY [facility] Last Admin: 04/24/22 07:59 Dose: 1 mg Documented By: ANUSHA Lisinopril (Lisinopril 20 Mg Tablet) 20 mg PO DAILY [facility]; Protocol Last Admin: 04/24/22 07:59 Dose: 20 mg Documented By: ANSUHA Magnesium Oxide (Magnesium Oxide 400 Mg Tablet) 400 mg PO BIDPC [facility] Last Admin: 04/24/22 07:59 Dose: 400 mg Documented By: ANUSHA Ondansetron HCl (Ondansetron Hcl 4 Mg/2 Ml Vial) 4 mg IVPUSH Q8H PRN PRN Reason: Nausea and Vomiting Pharmacy Consult (Consult Rx Perform Med Rec) 1 each MISCELLANE ONCE PRN PRN Reason: Consult order Pharmacy Consult (Consult Rx Etoh Phenob Im/Po) 1 each MISCELLANE ONCE PRN; Protocol PRN Reason: Consult order Phenobarbital (Phenobarbital 15 Mg Tablet) 45 mg PO BID [facility]; Protocol Stop: 04/25/22 09:01 Last Admin: 04/24/22 08:00 Dose: 45 mg Documented By: ANUSHA Phenobarbital (Phenobarbital 30 Mg Tablet) 30 mg PO BID [facility]; Protocol Stop: 04/27/22 09:01 Phenobarbital (Phenobarbital 30 Mg Tablet) 30 mg PO Q24H [facility]; Protocol Stop: 04/28/22 21:01 Polyethylene Glycol (Polyethylene Glycol 3350 17 Gm Powd.Pack) 17 gm PO DAILY [facility] Last Admin: 04/24/22 11:48 Dose: 17 gm Documented By: ANUSHA Sodium Chloride (0.9 % Sodium Chloride Flush 3 Ml Syringe) [facility] Last Admin: 04/24/22 08:04 Dose: 3 ml Documented By: ANUSHA Thiamine HCl (Thiamine Hcl 100 Mg Tablet) 100 mg PO DAILY [facility] Last Admin: 04/24/22 07:59 Dose: 100 mg Documented By: ANUSHA Thiamine HCl (Thiamine Hcl 100 Mg Tablet) 50 mg PO DAILY [facility] Last Admin: 04/24/22 07:59 Dose: 50 mg Documented By: ANUSHA Vitamin D (Cholecalciferol (Vitamin D3) 25 Mcg Tablet) 25 mcg PO DAILY [facility] Last Admin: 04/24/22 08:00 Dose: 25 mcg Documented By: ANUSHA Labs CBC & Chem 7: 04/23/22 04:51 04/24/22 05:21 Labs: Laboratory Results - last 24 hr 04/24/22 04/24/22 05:21 05:21 Anion Gap 12 Estim Creat Clear Calc 78.1 Estimated GFR > 60 Random Glucose 120 H Calcium 7.6 L D Magnesium 1.3 L* Total Bilirubin 0.7 Direct Bilirubin 0.4 AST 49 H ALT 33 Alkaline Phosphatase 52 D Total Protein 6.0 L Albumin 3.4 L Vitamin B12 772 Folate 3.7 L Assessment and Plan (1) Metabolic acidosis, IAG, accumulation of organic acids: Status: Acute Plan hospital d#2 52yo M with HTN, AUD p/w chest pain, admitted for EtOH ketoacidosis # AKA - resolved, d/c IV fluids # hypoMg, severe - replete IV+PO, recheck in AM # macrocytic anemia due to folate deficiency - folate repletion - recheck CBC in AM - FOBT # atypical chest pain - ACS ruled out by negative Tn-I, no EKG changes; pain has resolved # AUD with high risk for withdrawal - CARE Team + Addiction Med consults - B vitamin supplementation # VTE ppx: LMWH In my clinical judgment, the patient requires continued hospitalization for the following reasons:hypoMg requiring IV repletion Quality Stroke Does the patient have a stroke diagnosis?: No VTE Prior VTE?: No VTE Risk Level:: Medical - moderate - high VTE Device Contraindication: Treatment Not Indicated VTE Drug Contraindication: N/A - Med Ordered
--- NOTE | 2022-04-24 14:05 | HO.ADDICT_ITS ---
History of Present Illness Date of Service: 04/24/2022 Chief Complaint: Alcoholic ketoacidosis Reason for Consult: Alcohol use disorder HPI Narrative: Patient is a 52 year old male currently medically admitted with alcohol related ketoacidosis and alcohol withdrawal. Patient seen in room 347. Awake, alert, pleasant and engaged in interview. Patient denies any history of treatment for alcohol use. Much of the interview patient minimizing and somewhat dismissive of alcohol use and subsequent medical issues, this is nothing, I used take down 30 beers, now I am down to 1 or 2 hard drinks every day . Patient politely declined discussion on medications or any other recovery oriented resources. Continuously referenced a binder that had all the information I need about that . Patient did report family history of AUD--states his father stopped drinking at 60, and feels he will stop then too, or a year earlier. This bond writer provided quick education regarding medications available and outpatient treatment options should patient ever consider those. Patient then requested written information to reference when he gets home. Review of Systems Constitutional: Reports as per HPI Diagnostics Vital Signs (24Hr): Vital Signs - 24 hr 04/23/22 15:02 04/23/22 23:58 04/24/22 04:00 Temperature 98.3 F 97.8 F 97.8 F Pulse Rate 92 98 77 Respiratory Rate 16 16 16 Blood Pressure 139/90 H 166/100 H 135/93 H Pulse Oximetry 97 97 96 Oxygen Delivery Method Room Air Room Air Room Air 04/24/22 07:35 04/24/22 11:30 Temperature 97.6 F 98.7 F Pulse Rate 81 78 Respiratory Rate 17 18 Blood Pressure 135/91 H 115/72 Pulse Oximetry 97 96 Oxygen Delivery Method Room Air Room Air BMI result Body Mass Index 24.7 Labs Results: 04/23/22 04:51 04/24/22 05:21 Labs: Laboratory Results - last 48 hr 04/22/22 04/22/22 04/22/22 17:13 17:13 17:13 WBC 4.6 L RBC 3.78 L Hgb 13.1 L Hct 38.6 L MCV 102.1 H MCH 34.7 H MCHC 33.9 RDW 16.0 Plt Count 385 MPV 8.4 L Immature Gran % (Auto) 0.4 Neut % (Auto) 61.6 Lymph % (Auto) 27.9 [place] % (Auto) 6.8 Eos % (Auto) 2.0 Baso % (Auto) 1.3 Lymph # (Auto) 1.3 [place] # (Auto) 0.3 Eos # (Auto) 0.1 Baso # (Auto) 0.1 Abs Immat Gran (auto) 0.02 Absolute Neuts (auto) 2.8 Absolute Nucleated RBC 0.000 Nucleated RBC % (auto) 0.0 PT 10.1 INR 0.9 D-Dimer High Sensitivty 1086 VBG pH VBG pCO2 VBG pO2 VBG HCO3 VBG O2 Saturation VBG Base Excess Sodium 140 Potassium 3.8 Chloride 107 Carbon Dioxide 16 L Anion Gap 21 H BUN 40 H Creatinine 1.69 H Estim Creat Clear Calc 46.7 Estimated GFR 42 Random Glucose 80 Lactic Acid Lactic Acid F/U @ 2Hr Lactic Acid F/U @ 4Hr Calcium 8.9 Phosphorus Magnesium Total Bilirubin 0.5 Direct Bilirubin 0.2 AST 68 H ALT 54 H Alkaline Phosphatase 68 Total Creatine Kinase 138 Troponin I High Sens Total Protein 7.2 Albumin 4.1 Lipase 61 Vitamin B12 Folate Urine Color Urine Appearance Urine pH Ur Specific [place] Urine Protein Urine Glucose (UA) Urine Ketones Urine Blood Urine Nitrite Ur Leukocyte Esterase Salicylates < 5.0 L Acetaminophen < 1 Ethyl Alcohol 229 Acetone, Qual COVID-19 (ANA) COVID-19 Clin Com 04/22/22 04/22/22 04/22/22 17:13 17:58 18:04 WBC RBC Hgb Hct MCV MCH MCHC RDW Plt Count MPV Immature Gran % (Auto) Neut % (Auto) Lymph % (Auto) [place] % (Auto) Eos % (Auto) Baso % (Auto) Lymph # (Auto) [place] # (Auto) Eos # (Auto) Baso # (Auto) Abs Immat Gran (auto) Absolute Neuts (auto) Absolute Nucleated RBC Nucleated RBC % (auto) PT INR D-Dimer High Sensitivty VBG pH 7.31 L VBG pCO2 30 VBG pO2 88 VBG HCO3 15 L VBG O2 Saturation 95.0 VBG Base Excess -8.9 Sodium Potassium Chloride Carbon Dioxide Anion Gap BUN Creatinine Estim Creat Clear Calc Estimated GFR Random Glucose Lactic Acid Lactic Acid F/U @ 2Hr Lactic Acid F/U @ 4Hr Calcium Phosphorus Magnesium Total Bilirubin Direct Bilirubin AST ALT Alkaline Phosphatase Total Creatine Kinase Troponin I High Sens 7.6 Total Protein Albumin Lipase Vitamin B12 Folate Urine Color Yellow Urine Appearance Clear Urine pH 6.5 Ur Specific [place] <= 1.005 Urine Protein Negative Urine Glucose (UA) Negative Urine Ketones Negative Urine Blood Negative Urine Nitrite Negative Ur Leukocyte Esterase Negative Salicylates Acetaminophen Ethyl Alcohol Acetone, Qual COVID-19 (ANA) COVID-19 [facility] 04/22/22 04/22/22 04/23/22 22:59 22:59 00:00 WBC RBC Hgb Hct MCV MCH MCHC RDW Plt Count MPV Immature Gran % (Auto) Neut % (Auto) Lymph % (Auto) [place] % (Auto) Eos % (Auto) Baso % (Auto) Lymph # (Auto) [place] # (Auto) Eos # (Auto) Baso # (Auto) Abs Immat Gran (auto) Absolute Neuts (auto) Absolute Nucleated RBC Nucleated RBC % (auto) PT INR D-Dimer High Sensitivty VBG pH VBG pCO2 VBG pO2 VBG HCO3 VBG O2 Saturation VBG Base Excess Sodium 141 Potassium 4.7 D Chloride 111 H Carbon Dioxide 12 L Anion Gap 23 H BUN 32 H Creatinine 1.34 Estim Creat Clear Calc 58.9 Estimated GFR 56 Random Glucose 61 Lactic Acid 3.1 H* Lactic Acid F/U @ 2Hr Lactic Acid F/U @ 4Hr Calcium 8.1 L D Phosphorus Magnesium Total Bilirubin Direct Bilirubin AST ALT Alkaline Phosphatase Total Creatine Kinase Troponin I High Sens 10.8 Total Protein Albumin Lipase Vitamin B12 Folate Urine Color Urine Appearance Urine pH Ur Specific [place] Urine Protein Urine Glucose (UA) Urine Ketones Urine Blood Urine Nitrite Ur Leukocyte Esterase Salicylates Acetaminophen Ethyl Alcohol Acetone, Qual COVID-19 (ANA) COVID-19 Empathy [facility] 04/23/22 04/23/22 04/23/22 00:00 00:33 02:34 WBC RBC Hgb Hct MCV MCH MCHC RDW Plt Count MPV Immature Gran % (Auto) Neut % (Auto) Lymph % (Auto) [place] % (Auto) Eos % (Auto) Baso % (Auto) Lymph # (Auto) [place] # (Auto) Eos # (Auto) Baso # (Auto) Abs Immat Gran (auto) Absolute Neuts (auto) Absolute Nucleated RBC Nucleated RBC % (auto) PT INR D-Dimer High Sensitivty VBG pH VBG pCO2 VBG pO2 VBG HCO3 VBG O2 Saturation VBG Base Excess Sodium Potassium Chloride Carbon Dioxide Anion Gap BUN Creatinine Estim Creat Clear Calc Estimated GFR Random Glucose Lactic Acid Lactic Acid F/U @ 2Hr 2.8 H* Lactic Acid F/U @ 4Hr Calcium Phosphorus 3.0 Magnesium 1.2 L* Total Bilirubin Direct Bilirubin AST ALT Alkaline Phosphatase Total Creatine Kinase Troponin I High Sens Total Protein Albumin Lipase Vitamin B12 Folate Urine Color Urine Appearance Urine pH Ur Specific [place] Urine Protein Urine Glucose (UA) Urine Ketones Urine Blood Urine Nitrite Ur Leukocyte Esterase Salicylates Acetaminophen Ethyl Alcohol Acetone, Qual Negative COVID-19 (ANA) Negative COVID-19 Clin Com See Note 04/23/22 04/23/22 04/23/22 04:51 04:51 04:51 WBC 6.1 RBC 3.36 L Hgb 11.8 L Hct 34.1 L MCV 101.5 H MCH 35.1 H MCHC 34.6 RDW 16.2 H Plt Count 332 MPV 8.5 L Immature Gran % (Auto) 0.2 Neut % (Auto) 74.2 H Lymph % (Auto) 16.9 L [place] % (Auto) 6.7 Eos % (Auto) 1.3 Baso % (Auto) 0.7 Lymph # (Auto) 1.0 L [place] # (Auto) 0.4 Eos # (Auto) 0.1 Baso # (Auto) 0.0 Abs Immat Gran (auto) 0.01 Absolute Neuts (auto) 4.5 Absolute Nucleated RBC 0.000 Nucleated RBC % (auto) 0.0 PT INR D-Dimer High Sensitivty VBG pH VBG pCO2 VBG pO2 VBG HCO3 VBG O2 Saturation VBG Base Excess Sodium 143 Potassium 4.2 Chloride 112 H Carbon Dioxide 15 L Anion Gap 20 BUN 27 H Creatinine 1.23 Estim Creat Clear Calc 64.1 Estimated GFR > 60 Random Glucose 81 Lactic Acid Lactic Acid F/U @ 2Hr Lactic Acid F/U @ 4Hr 2.2 H* Calcium 8.3 L Phosphorus Magnesium Total Bilirubin Direct Bilirubin AST ALT Alkaline Phosphatase Total Creatine Kinase Troponin I High Sens Total Protein Albumin Lipase Vitamin B12 Folate Urine Color Urine Appearance Urine pH Ur Specific [place] Urine Protein Urine Glucose (UA) Urine Ketones Urine Blood Urine Nitrite Ur Leukocyte Esterase Salicylates Acetaminophen Ethyl Alcohol Acetone, Qual COVID-19 (ANA) COVID-19 Clin Com 04/23/22 04/23/22 04/24/22 06:56 06:59 05:21 WBC RBC Hgb Hct MCV MCH MCHC RDW Plt Count MPV Immature Gran % (Auto) Neut % (Auto) Lymph % (Auto) [place] % (Auto) Eos % (Auto) Baso % (Auto) Lymph # (Auto) [place] # (Auto) Eos # (Auto) Baso # (Auto) Abs Immat Gran (auto) Absolute Neuts (auto) Absolute Nucleated RBC Nucleated RBC % (auto) PT INR D-Dimer High Sensitivty VBG pH 7.45 H VBG pCO2 23 VBG pO2 128 VBG HCO3 16 L VBG O2 Saturation 100.0 VBG Base Excess -5.5 Sodium 143 141 Potassium 4.3 3.4 D Chloride 112 H 108 Carbon Dioxide 17 L 24 Anion Gap 18 12 BUN 26 H 14 Creatinine 1.23 1.01 Estim Creat Clear Calc 64.1 78.1 Estimated GFR > 60 > 60 Random Glucose 96 120 H Lactic Acid Lactic Acid F/U @ 2Hr Lactic Acid F/U @ 4Hr Calcium 8.2 L 7.6 L D Phosphorus Magnesium 1.5 L 1.3 L* Total Bilirubin 0.7 Direct Bilirubin 0.4 AST 49 H ALT 33 Alkaline Phosphatase 52 D Total Creatine Kinase Troponin I High Sens Total Protein 6.0 L Albumin 3.4 L Lipase Vitamin B12 Folate Urine Color Urine Appearance Urine pH Ur Specific [place] Urine Protein Urine Glucose (UA) Urine Ketones Urine Blood Urine Nitrite Ur Leukocyte Esterase Salicylates Acetaminophen Ethyl Alcohol Acetone, Qual COVID-19 (ANA) COVID-19 Clin Com 04/24/22 05:21 WBC RBC Hgb Hct MCV MCH MCHC RDW Plt Count MPV Immature Gran % (Auto) Neut % (Auto) Lymph % (Auto) [place] % (Auto) Eos % (Auto) Baso % (Auto) Lymph # (Auto) [place] # (Auto) Eos # (Auto) Baso # (Auto) Abs Immat Gran (auto) Absolute Neuts (auto) Absolute Nucleated RBC Nucleated RBC % (auto) PT INR D-Dimer High Sensitivty VBG pH VBG pCO2 VBG pO2 VBG HCO3 VBG O2 Saturation VBG Base Excess Sodium Potassium Chloride Carbon Dioxide Anion Gap BUN Creatinine Estim Creat Clear Calc Estimated GFR Random Glucose Lactic Acid Lactic Acid F/U @ 2Hr Lactic Acid F/U @ 4Hr Calcium Phosphorus Magnesium Total Bilirubin Direct Bilirubin AST ALT Alkaline Phosphatase Total Creatine Kinase Troponin I High Sens Total Protein Albumin Lipase Vitamin B12 772 Folate 3.7 L Urine Color Urine Appearance Urine pH Ur Specific [place] Urine Protein Urine Glucose (UA) Urine Ketones Urine Blood Urine Nitrite Ur Leukocyte Esterase Salicylates Acetaminophen Ethyl Alcohol Acetone, Qual COVID-19 (ANA) COVID-19 Clin Com Imaging Radiology Impressions: ITS Impressions Chest X-Ray 04/22/22 11:12 IMPRESSION: Unremarkable examination. Chest CTA 04/22/22 20:45 IMPRESSION: 1. No pulmonary embolus or thoracic aortic aneurysm or dissection is seen. 2. There is bilateral lower lobe atelectatic change, right greater than left. No focal infiltrate is noted. 3. There is no pleural effusion or pneumothorax. 4. No thoracic lymphadenopathy or pleural effusion is seen. 5. No acute or aggressive osseous finding is noted. 6. There is diffuse hepatic steatosis. VTE: negative Mental Status Exam Mental Status Exam Patient Appearance: Appropriate Level of Consciousness: Awake, Appropriate and Alert Patient Behavior: Appropriate Mood Description: Calm Speech Pattern: Clear Judgement: Fair (limited insight) Medications Medications Current Medications Acetaminophen (Acetaminophen 325 Mg Tablet) 650 mg PO Q6H PRN PRN Reason: Pain, Mild (Pain Scale 1-3) Allopurinol (Allopurinol 300 Mg Tablet) 300 mg PO DAILY [facility] Last Admin: 04/24/22 07:59 Dose: 300 mg Amlodipine Besylate (Amlodipine Besylate 10 Mg Tablet) 10 mg PO DAILY [facility]; Protocol Last Admin: 04/24/22 07:59 Dose: 10 mg Atenolol (Atenolol 25 Mg Tablet) 25 mg PO DAILY [facility]; Protocol Last Admin: 04/24/22 07:59 Dose: 25 mg Cyanocobalamin (Cyanocobalamin (Vitamin B-12) 1,000 Mcg Tablet) 1,000 mcg PO DAILY [facility] Last Admin: 04/24/22 07:59 Dose: 1,000 mcg Docusate Sodium (Docusate Sodium 100 Mg Capsule) 100 mg PO DAILY PRN PRN Reason: Constipation Enoxaparin Sodium (Enoxaparin Sodium 40 Mg/0.4 Ml Syringe) 40 mg SUBCUT Q24H [facility] Last Admin: 04/24/22 08:00 Dose: 40 mg Folic Acid (Folic Acid 1 Mg Tablet) 1 mg PO DAILY [facility] Last Admin: 04/24/22 07:59 Dose: 1 mg Lisinopril (Lisinopril 20 Mg Tablet) 20 mg PO DAILY [facility]; Protocol Last Admin: 04/24/22 07:59 Dose: 20 mg Magnesium Oxide (Magnesium Oxide 400 Mg Tablet) 400 mg PO BIDPC [facility] Last Admin: 04/24/22 07:59 Dose: 400 mg Ondansetron HCl (Ondansetron Hcl 4 Mg/2 Ml Vial) 4 mg IVPUSH Q8H PRN PRN Reason: Nausea and Vomiting Pharmacy Consult (Consult Rx Perform Med Rec) 1 each MISCELLANE ONCE PRN PRN Reason: Consult order Pharmacy Consult (Consult Rx Etoh Phenob Im/Po) 1 each MISCELLANE ONCE PRN; Protocol PRN Reason: Consult order Phenobarbital (Phenobarbital 15 Mg Tablet) 45 mg PO BID [facility]; Protocol Stop: 04/25/22 09:01 Last Admin: 04/24/22 08:00 Dose: 45 mg Phenobarbital (Phenobarbital 30 Mg Tablet) 30 mg PO BID [facility]; Protocol Stop: 04/27/22 09:01 Phenobarbital (Phenobarbital 30 Mg Tablet) 30 mg PO Q24H [facility]; Protocol Stop: 04/28/22 21:01 Polyethylene Glycol (Polyethylene Glycol 3350 17 Gm Powd.Pack) 17 gm PO DAILY [facility] Last Admin: 04/24/22 11:48 Dose: 17 gm Sodium Chloride (0.9 % Sodium Chloride Flush 3 Ml Syringe) 3 ml IVFLUSH QSHIFT [facility] Last Admin: 04/24/22 08:04 Dose: 3 ml Thiamine HCl (Thiamine Hcl 100 Mg Tablet) 100 mg PO DAILY [facility] Last Admin: 04/24/22 07:59 Dose: 100 mg Thiamine HCl (Thiamine Hcl 100 Mg Tablet) 50 mg PO DAILY [facility] Last Admin: 04/24/22 07:59 Dose: 50 mg Vitamin D (Cholecalciferol (Vitamin D3) 25 Mcg Tablet) 25 mcg PO DAILY [facility] Last Admin: 04/24/22 08:00 Dose: 25 mcg Allergies Allergies Allergy/AdvReac Type Severity Reaction Status Date / Time No Known Allergies Allergy Verified 04/22/22 10:52 Assessment & Plan Assessment & Plan (1) Alcohol use disorder, severe, dependence: Status: Acute Code(s): F10.20 - Alcohol dependence, uncomplicated Assessment and Plan: * will provide recovery resources and medication education to patient * no follow up inidicated at this time I spent _30 minutes with the patient and/or on the patient floor today, g reater than?50% of which was spent counseling/coordinating care. [facility] Past Medical History Medical History (Updated 04/24/22 @ 14:28 by Evie Devries CNP) History of alcohol abuse Hypertension Rib fracture Family History Family History (Updated 04/23/22 @ 06:23 by Med Cazares MD) Other No family history of coronary artery disease Surgical History Surgical History (Updated 04/23/22 @ 06:23 by Med Cazares MD) No pertinent past surgical history Social History Social History (Updated 04/23/22 @ 06:23 by Med Cazares MD) Household Members: None Housing: Apartment Do you presently have visiting nurse or other home services: No Alcohol intake: current Alcohol intake frequency: 0-2 drinks per day Alcohol type: beer Patient Tobacco Use Status: Never used Tobacco Tobacco use type: Cigarette Cigarettes Per Day: 5 service: No Current occupational status: unemployed
[2022-04-24 15:18] VITALS: BP 140/74; PULSE 80; RESP 14; TEMP 37.7; O2SAT 99
[2022-04-24 19:07] VITALS: BP 104/69; PULSE 83; RESP 13; TEMP 37.2; O2SAT 95
[2022-04-24 23:33] VITALS: BP 126/85; PULSE 76; RESP 18; TEMP 37.2; O2SAT 97
[2022-04-25 03:33] VITALS: BP 132/87; PULSE 79; RESP 18; TEMP 36.7; O2SAT 95
[2022-04-25 06:38] LABS: Hematocrit 34.6 % (42.0-52.0); Mean Corpuscular HGB Conc 34.7 g/dl (31.0-36.0); Mean Corpuscular Volume 100.9 fL (80.0-98.0); Mean Platelet Volume 8.7 fL (9.4-12.4); Platelet Count 288 X10*3/uL (160-400); Red Blood Count 3.43 X10*6/uL (4.60-5.80); Red Cell Distribution Width 15.6 % (11.0-16.0); White Blood Count 4.3 X10*3/uL (4.8-10.8)
[2022-04-25 07:05] LABS: Anion Gap 15 (12-20); Blood Urea Nitrogen 11 mg/dL (9-16); Calcium 7.9 mg/dL (8.4-10.2); Carbon Dioxide 23 mmol/L (22-29); Chloride 104 mmol/L (96-108); Creatinine Clr Calc Pharmacy 86.7; Estimated Glomerular Filt Rate > 60; Glucose Random 88 mg/dL (60-115); Potassium 3.6 mmol/L (3.3-5.1); Sodium 138 mmol/L (135-145)
[2022-04-25 07:19] LABS: HBS Num1 0.36 mIU/mL (0-7.99); HBc Num1 0.06 S/CO (0.00-0.79); HBsAGNum1 0.27 S/CO (0.00-0.99); Hepatitis B Core Antibody Nonreactive (Nonreactive); Hepatitis B Surface Antigen Negative (Negative); ~HepC Num1 0.09 S/CO (0.00-0.79); ~Hepatitis B Surface Antibody NONREACTIVE (Nonreactive); ~Hepatitis C Antibody Nonreactive (Nonreactive)
[2022-04-25 07:28] VITALS: BP 135/95; PULSE 77; RESP 17; TEMP 36.7; O2SAT 96
[2022-04-25 08:02] LABS: Magnesium 1.1 mg/dL (1.6-2.6)
[2022-04-25] MEDS: Thiamine HCL 100 MG TABLET PO (08:29)
[2022-04-25] MEDS: allopurinoL 300 MG TABLET PO (08:29)
[2022-04-25] MEDS: Folic Acid 1 MG TABLET PO (08:29)
[2022-04-25] MEDS: polyethylene glycoL 3350 17 GM POWD.PACK PO (08:30)
[2022-04-25] MEDS: Cyanocobalamin (Vitamin B-12) 1,000 MCG TABLET 1000 MCG PO (08:30)
[2022-04-25] MEDS: Thiamine HCL 100 MG TABLET 50 MG PO (08:30)
[2022-04-25] MEDS: Magnesium Oxide 400 MG TABLET 800 MG PO ×2 (08:30→17:24)
[2022-04-25] MEDS: PHENobarbitaL 15 MG TABLET 45 MG PO (08:30)
[2022-04-25] MEDS: amLODIPine Besylate 10 MG TABLET PO (08:30)
[2022-04-25] MEDS: Cholecalciferol (Vitamin D3) 25 MCG TABLET PO (08:30)
[2022-04-25] MEDS: Magnesium Sulfate/H2O 2 GM/50 ML PIGGYBACK IV ×2 (08:31→20:48)
[2022-04-25] MEDS: lisinopriL 20 MG TABLET PO (08:31)
[2022-04-25] MEDS: atenoloL 25 MG TABLET PO (08:31)
[2022-04-25] MEDS: Enoxaparin Sodium 40 MG/0.4 ML SYRINGE SUBCUT (08:31)
[2022-04-25] MEDS: 0.9 % Sodium Chloride Flush 3 ML SYRINGE IVFLUSH ×3 (08:31→20:48)
--- NOTE | 2022-04-25 10:01 | HO.PM.IMPN ---
Subjective Subjective Date of Service: 04/25/22 Interval History: no muscle cramping no abd pain minimizes drinking problem Review of Systems Review of Systems: Yes all other systems are reviewed and are negative Physical Exam Vital Signs: Vital Signs: Last Vital Signs Temp 98.0 F 04/25/22 07:28 Pulse 77 04/25/22 07:28 Resp 17 04/25/22 07:28 BP 135/95 H 04/25/22 07:28 Pulse Ox 96 04/25/22 07:28 O2 Del Method 04/25/22 07:28 BMI result Body Mass Index 24.7 gen- facial flushing, NAD neck- supple lungs- CTAB CV- RRR no m/r/g abd- soft/NT ext- no edema Objective Data Active Medications Acetaminophen (Acetaminophen 325 Mg Tablet) 650 mg PO Q6H PRN PRN Reason: Pain, Mild (Pain Scale 1-3) Allopurinol (Allopurinol 300 Mg Tablet) 300 mg PO DAILY [facility] Last Admin: 04/25/22 08:29 Dose: 300 mg Documented By: GERRY Amlodipine Besylate (Amlodipine Besylate 10 Mg Tablet) 10 mg PO DAILY [facility]; Protocol Last Admin: 04/25/22 08:30 Dose: 10 mg Documented By: GERRY Atenolol (Atenolol 25 Mg Tablet) 25 mg PO DAILY [facility]; Protocol Last Admin: 04/25/22 08:31 Dose: 25 mg Documented By: GERRY Cyanocobalamin (Cyanocobalamin (Vitamin B-12) 1,000 Mcg Tablet) 1,000 mcg PO DAILY [facility] Last Admin: 04/25/22 08:30 Dose: 1,000 mcg Documented By: GERRY Docusate Sodium (Docusate Sodium 100 Mg Capsule) 100 mg PO DAILY PRN PRN Reason: Constipation Enoxaparin Sodium (Enoxaparin Sodium 40 Mg/0.4 Ml Syringe) 40 mg SUBCUT Q24H [facility] Last Admin: 04/25/22 08:31 Dose: 40 mg Documented By: GERRY Folic Acid (Folic Acid 1 Mg Tablet) 1 mg PO DAILY [facility] Last Admin: 04/25/22 08:29 Dose: 1 mg Documented By: GERRY Magnesium Sulfate (Magnesium Sulfate/H2o) 2 gm in 50 mls @ 25 mls/hr IV Q12H JOE Stop: 04/25/22 22:14 Last Admin: 04/25/22 08:31 Dose: 25 mls/hr Documented By: GERRY Lisinopril (Lisinopril 20 Mg Tablet) 20 mg PO DAILY [facility]; Protocol Last Admin: 04/25/22 08:31 Dose: 20 mg Documented By: GERRY Magnesium Oxide (Magnesium Oxide 400 Mg Tablet) 800 mg PO BIDPC [facility] Last Admin: 04/25/22 08:30 Dose: 800 mg Documented By: GERRY Ondansetron HCl (Ondansetron Hcl 4 Mg/2 Ml Vial) 4 mg IVPUSH Q8H PRN PRN Reason: Nausea and Vomiting Pharmacy Consult (Consult Rx Perform Med Rec) 1 each MISCELLANE ONCE PRN PRN Reason: Consult order Pharmacy Consult (Consult Rx Etoh Phenob Im/Po) 1 each MISCELLANE ONCE PRN; Protocol PRN Reason: Consult order Phenobarbital (Phenobarbital 30 Mg Tablet) 30 mg PO BID [facility]; Protocol Stop: 04/27/22 09:01 Phenobarbital (Phenobarbital 30 Mg Tablet) 30 mg PO Q24H [facility]; Protocol Stop: 04/28/22 21:01 Polyethylene Glycol (Polyethylene Glycol 3350 17 Gm Powd.Pack) 17 gm PO DAILY [facility] Last Admin: 04/25/22 08:30 Dose: 17 gm Documented By: GERRY Sodium Chloride (0.9 % Sodium Chloride Flush 3 Ml Syringe) 3 ml IVFLUSH QSHIFT [facility] Last Admin: 04/25/22 08:31 Dose: 3 ml Documented By: GERRY Thiamine HCl (Thiamine Hcl 100 Mg Tablet) 100 mg PO DAILY [facility] Last Admin: 04/25/22 08:29 Dose: 100 mg Documented By: GERRY Thiamine HCl (Thiamine Hcl 100 Mg Tablet) 50 mg PO DAILY [facility] Last Admin: 04/25/22 08:30 Dose: 50 mg Documented By: GERRY Vitamin D (Cholecalciferol (Vitamin D3) 25 Mcg Tablet) 25 mcg PO DAILY [facility] Last Admin: 04/25/22 08:30 Dose: 25 mcg Documented By: GERRY Labs CBC & Chem 7: 04/25/22 05:44 04/25/22 05:44 Labs: Laboratory Results - last 24 hr 04/25/22 04/25/22 04/25/22 05:44 05:44 05:44 MCV 100.9 H MCH 35.0 H MCHC 34.7 RDW 15.6 Plt Count 288 MPV 8.7 L Absolute Nucleated RBC 0.000 Nucleated RBC % (auto) 0.0 Anion Gap 15 Estim Creat Clear Calc 86.7 Estimated GFR > 60 Random Glucose 88 Calcium 7.9 L Magnesium 1.1 L* Hep Bs Antigen Negative Hep Bs Antibody NONREACTIVE Hep B Core Total Ab Nonreactive Hepatitis C Ab (EIA) Nonreactive Assessment and Plan (1) Metabolic acidosis, IAG, accumulation of organic acids: Status: Acute [facility] hospital d#4 52yo M with HTN, AUD p/w chest pain, admitted for EtOH ketoacidosis # AKA - resolved, d/c IV fluids # hypoMg, severe - replete IV 2g x2, increase PO MgO to 800 mg bid, recheck level in AM # macrocytic anemia due to folate deficiency - folate repletion - FOBT # atypical chest pain - ACS ruled out by negative Tn-I, no EKG changes; pain has resolved # AUD with high risk for withdrawal - CARE Team + Addiction Med consults: pt declines MAT, is in denial about the severity of his problem - B vitamin supplementation # VTE ppx: LMWH In my clinical judgment, the patient requires continued hospitalization for the following reasons:hypoMg requiring IV repletion Quality Stroke Does the patient have a stroke diagnosis?: No VTE Prior VTE?: No VTE Risk Level:: Medical - moderate - high VTE Device Contraindication: Treatment Not Indicated VTE Drug Contraindication: N/A - Med Ordered
--- NOTE | 2022-04-25 11:13 | MHC.CM.PN ---
PER ROUNDS DISCUSSION, PATIENT IS NOT YET MEDICALLY CLEARED FOR DISCHARGE TODAY R/T HYPOMAGNESEMIA/NEED FOR IV REPLETION. D/C PLAN CONTINUES TO BE HOME SELF-CARE. CM WILL CONTINUE TO FOLLOW FOR DISCHARGE NEEDS.
[2022-04-25 11:48] VITALS: BP 114/72; PULSE 77; RESP 18; TEMP 36.6; O2SAT 97
[2022-04-25 14:12] LABS: OBS Int Ctl Valid YES; OBS1 NEGATIVE (NEGATIVE)
[2022-04-25 14:58] VITALS: BP 121/83; PULSE 71; RESP 17; TEMP 36.4; O2SAT 97
[2022-04-25 19:48] VITALS: BP 128/89; PULSE 77; RESP 18; TEMP 36.4; O2SAT 97
[2022-04-25] MEDS: PHENobarbitaL 30 MG TABLET PO (20:48)
[2022-04-25 23:43] VITALS: BP 129/82; PULSE 74; RESP 17; TEMP 36.1; O2SAT 97
[2022-04-26 03:35] VITALS: BP 140/65; PULSE 87; RESP 17; TEMP 36.3; O2SAT 97
[2022-04-26 07:45] VITALS: BP 131/95; PULSE 76; RESP 18; TEMP 36.3; O2SAT 97
[2022-04-26] MEDS: allopurinoL 300 MG TABLET PO (08:42)
[2022-04-26] MEDS: Enoxaparin Sodium 40 MG/0.4 ML SYRINGE SUBCUT (08:42)
[2022-04-26] MEDS: polyethylene glycoL 3350 17 GM POWD.PACK PO (08:42)
[2022-04-26] MEDS: amLODIPine Besylate 10 MG TABLET PO (08:42)
[2022-04-26] MEDS: lisinopriL 20 MG TABLET PO (08:42)
[2022-04-26] MEDS: Cholecalciferol (Vitamin D3) 25 MCG TABLET PO (08:42)
[2022-04-26] MEDS: atenoloL 25 MG TABLET PO (08:43)
[2022-04-26] MEDS: Folic Acid 1 MG TABLET PO (08:43)
[2022-04-26] MEDS: Magnesium Oxide 400 MG TABLET 800 MG PO (08:43)
[2022-04-26] MEDS: Thiamine HCL 100 MG TABLET 50 MG PO (08:43)
[2022-04-26] MEDS: Cyanocobalamin (Vitamin B-12) 1,000 MCG TABLET 1000 MCG PO (08:43)
[2022-04-26] MEDS: PHENobarbitaL 30 MG TABLET PO (08:43)
[2022-04-26] MEDS: Thiamine HCL 100 MG TABLET PO (08:43)
[2022-04-26] MEDS: 0.9 % Sodium Chloride Flush 3 ML SYRINGE IVFLUSH (08:44)
--- NOTE | 2022-04-26 10:05 | P.DS_ITS ---
DS: Providers Provider Date of Service: 04/26/22 Date of admission: 04/23/22 00:46 Date of discharge: 04/26/22 Primary care physician: Berto Boyd MD Consults: 04/23/22 09:17 Addiction Medicine Routine Consulting Provider: Evie Devries Reason for consultation: etoh abuse Consult to Care Team Routine Comment: Reason for consultation: etoh abuse DS: Diagnosis Discharge Diagnosis (1) Alcoholic ketoacidosis: Status: Acute (2) Atypical chest pain: Status: Acute (3) Hypomagnesemia: Status: Acute (4) Alcohol withdrawal: Status: Acute (5) Alcohol use disorder, severe, dependence: Status: Acute (6) Folate deficiency anemia: Status: Acute DS: Summary Hospital Course Hospital Course: From the history and physical by the admitting hospitalist, Med Cazares, 04/23/22: 52-year-old male with past medical history of hypertension as well as alcohol abuse presents to the hospital with complaints of left-sided chest pain that has been constant for the past 3-4 weeks.? The pain is sharp, stabbing, nonradiating, no relieving or exacerbating factors. ? Patient reports nausea with no vomiting, he reports that he drinks about 16 oz beer daily, he is cu rrently jittery and anxious but denies withdrawing, his last drink was over 12 hours ago, he reports no? shortness of breath, no cough, no abdominal pain, no diarrhea constipation, no urinary symptoms and no lower extremity edema.? On arrival to the ED patient hemodynamically stable with no significant abnormal vitals Labs are significant for? WBC count of? 4.6, hemoglobin 13.1, hematocrit 30.6, MCV of 102, pH of 7.31, bicarb of 15, positive anion gap,? BUN 40, creatinine of 1.69 with a baseline of less than 1, lactic acid of 3.1, AST of 68, ALT of 54, ?patient started on IV fluids with slight worsening of his bicarb, but then switched to D5 fluid with improvement in his bicarb This 52yo M with HTN and AUD presented with chest pain and was admitted for EtOH ketoacidosis, which resolved with IV fluids. He had severe hypomagnesemia requiring IV therapy and initiation of PO maintenance. He was found to have macrocytic anemia due to folate deficiency and was also started on folate. C hest pain was deemed atypical, and ACS was ruled out by negative Tn-I and lack of EKG changes; pain resolved the 1st day of admission. As for alcohol use disorder, he was treated for withdrawal with phenobarbital taper. He was in denial about the severity of his alcohol problem and declined medication- assisted treatment. He was discharged home with referral to community resources to maintain sobriety. Time Spent with Patient Time attestation: Total time spent providing and/or coordinating discharge services: 35 Discharge coordination time: Greater than 30 minutes Quality: Safe Use of Opioids Does Pt have an Active Cancer Diagnosis on the Problem List?: No Quality: Stroke Does the patient have a stroke diagnosis?: No Physical Exam Vital Signs: Vital Signs: Last Vital Signs Temp 97.3 F 04/26/22 07:45 Pulse 76 04/26/22 07:45 Resp 18 04/26/22 07:45 BP 131/95 H 04/26/22 07:45 Pulse Ox 97 04/26/22 07:45 O2 Del Method 04/26/22 07:45 BMI result Body Mass Index 24.7 Gen: in no acute distress HEENT: sclera anicteric, moist mucus membranes Neck: supple Lungs: clear to auscultation bilaterally Heart: regular rate and rhythm, no murmurs Abd: soft, non-tender, non-distended Ext: no edema Skin: warm/well-perfused Neuro: alert and oriented x3, no focal findings Psych: appropriate affect DS: Data Data Completed and Pending Completed studies during hospitalization [Text1]: Laboratory Results WBC 4.3 X10*3/uL (4.8-10.8) L 04/25/22 05:44 RBC 3.43 X10*6/uL (4.60-5.80) L 04/25/22 05:44 Hgb 12.0 g/dl (14.0-18.0) L 04/25/22 05:44 Hct 34.6 % (42.0-52.0) L 04/25/22 05:44 MCV 100.9 fL (80.0-98.0) H 04/25/22 05:44 MCH 35.0 pg (27.0-33.0) H 04/25/22 05:44 MCHC 34.7 g/dl (31.0-36.0) 04/25/22 05:44 RDW 15.6 % (11.0-16.0) 04/25/22 05:44 Plt Count 288 X10*3/uL (160-400) 04/25/22 05:44 MPV 8.7 fL (9.4-12.4) L 04/25/22 05:44 Immature Gran % (Auto) 0.2 % (0.0-0.4) 04/23/22 04:51 Neut % (Auto) 74.2 % (45-73) H 04/23/22 04:51 Lymph % (Auto) 16.9 % (20-40) L 04/23/22 04:51 Tillman % (Auto) 6.7 % (2-11) 04/23/22 04:51 Eos % (Auto) 1.3 % (0-4) 04/23/22 04:51 Baso % (Auto) 0.7 % (0-2) 04/23/22 04:51 Lymph # (Auto) 1.0 X10*3/uL (1.2-4.9) L 04/23/22 04:51 Tillman # (Auto) 0.4 X10*3/uL (0.1-1.2) 04/23/22 04:51 Eos # (Auto) 0.1 X10*3/uL (0.0-0.4) 04/23/22 04:51 Baso # (Auto) 0.0 X10*3/uL (0.0-0.2) 04/23/22 04:51 Abs Immat Gran (auto) 0.01 X10*3/uL (0.00-0.03) 04/23/22 04:51 Absolute Neuts (auto) 4.5 x10*3/uL (2.0-8.3) 04/23/22 04:51 Absolute Nucleated RBC 0.000 X10*3/uL (0.0-0.012) 04/25/22 05:44 Nucleated RBC % (auto) 0.0 /100WBC (0.0-0.2) 04/25/22 05:44 PT 10.1 SEC (10.0-13.1) 04/22/22 17:13 INR 0.9 (0.9-1.1) 04/22/22 17:13 D-Dimer High Sensitivty 1086 NG/ML 04/22/22 17:13 VBG pH 7.45 (7.32-7.43) H 04/23/22 06:59 VBG pCO2 23 mmHg 04/23/22 06:59 VBG pO2 128 mmHg 04/23/22 06:59 VBG HCO3 16 mmol/L (22-26) L 04/23/22 06:59 VBG O2 Saturation 100.0 % 04/23/22 06:59 VBG Base Excess -5.5 mmol/L 04/23/22 06:59 Sodium 138 mmol/L (135-145) 04/25/22 05:44 Potassium 3.6 mmol/L (3.3-5.1) 04/25/22 05:44 Chloride 104 mmol/L (96-108) 04/25/22 05:44 Carbon Dioxide 23 mmol/L (22-29) 04/25/22 05:44 Anion Gap 15 (12-20) 04/25/22 05:44 BUN 11 mg/dL (9-16) 04/25/22 05:44 Creatinine 0.91 mg/dL (0.5-1.4) 04/25/22 05:44 Estim Creat Clear Calc 86.7 04/25/22 05:44 Estimated GFR > 60 04/25/22 05:44 Random Glucose 88 mg/dL (60-115) 04/25/22 05:44 Lactic Acid 3.1 mmol/L (0.5-2.0) H* 04/23/22 00:00 Lactic Acid F/U @ 2Hr 2.8 mmol/L (0.5-2.0) H* 04/23/22 02:34 Lactic Acid F/U @ 4Hr 2.2 mmol/L (0.5-2.0) H* 04/23/22 04:51 Calcium 7.9 mg/dL (8.4-10.2) L 04/25/22 05:44 Phosphorus 3.0 mg/dL (2.7-4.5) 04/23/22 00:00 Magnesium 2.0 mg/dL (1.6-2.6) 04/26/22 05:40 Total Bilirubin 0.7 mg/dL (0.0-1.0) 04/24/22 05:21 Direct Bilirubin 0.4 mg/dL (0.0-0.5) 04/24/22 05:21 AST 49 U/L (5-37) H 04/24/22 05:21 ALT 33 U/L (0-40) 04/24/22 05:21 Alkaline Phosphatase 52 U/L (39-117) D 04/24/22 05:21 Total Creatine Kinase 138 U/L (38-174) 04/22/22 17:13 Troponin I High Sens 10.8 ng/L (<3.5-35.0) 04/22/22 22:59 Total Protein 6.0 g/dL (6.5-8.0) L 04/24/22 05:21 Albumin 3.4 g/dL (3.5-5.0) L 04/24/22 05:21 Lipase 61 U/L (8-78) 04/22/22 17:13 Vitamin B12 772 pg/mL (200-900) 04/24/22 05:21 Folate 3.7 ng/mL (> or = 4.0) L 04/24/22 05:21 Urine Color Yellow 04/22/22 17:58 Urine Appearance Clear 04/22/22 17:58 Urine pH 6.5 (5.0-8.0) 04/22/22 17:58 Ur Specific [place] <= 1.005 (1.005-1.025) 04/22/22 17:58 Urine Protein Negative mg/dL (Neg-Trace) 04/22/22 17:58 Urine Glucose (UA) Negative mg/dL (Negative) 04/22/22 17:58 Urine Ketones Negative mg/dL (Negative) 04/22/22 17:58 Urine Blood Negative (Negative) 04/22/22 17:58 Urine Nitrite Negative (Negative) 04/22/22 17:58 Ur Leukocyte Esterase Negative (Negative) 04/22/22 17:58 Stool Occult Blood NEGATIVE (NEGATIVE) 04/25/22 13:52 Salicylates < 5.0 mg/dL (15-30) L 04/22/22 17:13 Acetaminophen < 1 mcg/mL (<30) 04/22/22 17:13 Ethyl Alcohol 229 mg/dL 04/22/22 17:13 Acetone, Qual Negative (Negative) 04/23/22 00:00 COVID-19 (ANA) Negative (Negative) 04/23/22 00:33 COVID-19 Clin Com See Note 04/23/22 00:33 Hep Bs Antigen Negative (Negative) 04/25/22 05:44 Hep Bs Antibody NONREACTIVE (Nonreactive) 04/25/22 05:44 Hep B Core Total Ab Nonreactive (Nonreactive) 04/25/22 05:44 Hepatitis C Ab (EIA) Nonreactive (Nonreactive) 04/25/22 05:44 Impressions Chest X-Ray 04/22/22 11:12 IMPRESSION: Unremarkable examination. Chest CTA 04/22/22 20:45 IMPRESSION: 1. No pulmonary embolus or thoracic aortic aneurysm or dissection is seen. 2. There is bilateral lower lobe atelectatic change, right greater than left. No focal infiltrate is noted. 3. There is no pleural effusion or pneumothorax. 4. No thoracic lymphadenopathy or pleural effusion is seen. 5. No acute or aggressive osseous finding is noted. 6. There is diffuse hepatic steatosis. VTE: negative Labs on day of discharge: Laboratory Results - last 24 hr 04/25/22 04/26/22 13:52 05:40 Magnesium 2.0 Stool Occult Blood NEGATIVE Discharge Plan Discharge Patient Disposition: Home, Self-Care Discharge Diagnosis: alcoholic ketoacidosis, hypomagnesemia, folate deficiency anemia, alcohol use disorder, alcohol withdrawal, atypical chest pain Referrals: Berto Boyd MD [Primary Care Provider] - 1 Week Discharge Medications: New magnesium oxide 400 mg (241.3 mg magnesium) Tablet 800 mg PO BIDPC Qty: 120 0RF folic acid 1 mg Tablet 1 mg PO DAILY Qty: 30 0RF Continued acetaminophen 325 mg tablet 3 tab PO Q8H PRN (Reason: pain) lisinopril 20 mg tablet 1 tab PO DAILY atenolol 25 mg tablet 1 tab PO DAILY cyanocobalamin (vitamin B-12) 1,000 mcg tablet 1 tab DAILY amlodipine 10 mg tablet 1 tab PO DAILY allopurinol 300 mg tablet 1 tab DAILY thiamine HCl (vitamin B1) 50 mg tablet 1 tab DAILY cholecalciferol (vitamin D3) 25 mcg (1,000 unit) tablet 1 tab PO DAILY Discharge Orders: Discharge Order (Routine); Ordered 04/26/22 Ordered By: Jaehyun Isabel Diet: Advance to usual diet Activity on Discharge: As tolerated Stand Alone Forms: Patient Portal Discharge page Care Plan Goals: sobriety Health Concerns: alcoholic ketoacidosis, hypomagnesemia, folate deficiency anemia, alcohol use disorder, alcohol withdrawal, atypical chest pain Plan of Treatment: take magnesium as prescribed take folic acid as prescribed maintain sobriety you received phenobarbital to treat alcohol withdrawal. this medication lasts in your system a long time; do not drink alcohol, as the combination with phenobarbital is dangerous Please follow up with your primary care doctor within 1 week. Please return to the hospital if you experience recurrent or worsening symptoms, Assessment: See Discharge Summary
--- NOTE | 2022-04-26 10:44 | MHC.CM.PN ---
PT TO DC HOME TODAY WITH NO SERVICES TRANSPORTATION: FAMILY VS BUS
== END 2022-04-26 11:07 | disposition home or self-care (01) | DRG 425 ==
LOC: HO.ED 04-23 00:51 → HO.EDOVER 04-23 00:57 → HO.S3 04-23 22:27
PROVIDERS: Emergency Medicine; Nurse Practitioner Family; Admitting Provider Internal Medicine; Emergency Provider Internal Medicine; PCP Internal Medicine; Visit Provider Family Medicine
DX: E83.42 Hypomagnesemia (principal); D52.9 Folate deficiency anemia, unspecified; E87.2 Acidosis; F10.239 Alcohol dependence with withdrawal, unspecified; I10 Essential (primary) hypertension; Y90.7 Blood alcohol level of 200-239 mg/100 ml; Z20.822 Contact with and (suspected) exposure to COVID-19; Z79.899 Other long term (current) drug therapy
CPT/HCPCS: 36415; 71046; 71275; 80048; 80076; 80143; 80179; 81003; 82009; 82077; 82272; 82550; 82607; 82746; 82803; 83605; 83690; 83735; 84100; 84484; 85025; 85027; 85379; 85610; 86704; 86706; 86803; 87340; 87635; 93005; 96360; 96361; 99285; J1650; J2560; J3411; J3475; Q9967

== ENCOUNTER 2023-04-15 09:27 | Outpatient (REF) | payer MEDICAID, SELFPAY ==
[2023-04-15 15:31] LABS: Alanine Aminotransferase 53 U/L (0-40); Albumin Level 4.6 g/dL (3.5-5.0); Alkaline Phosphatase 54 U/L (39-117); Aspartate Amino Transferase 53 U/L (5-37); Bilirubin Direct 0.4 mg/dL (0.0-0.5); Bilirubin Total 1.4 mg/dL (0.0-1.0); Total Protein 8.5 g/dL (6.5-8.0)
== END 2023-04-15 09:28 | disposition home or self-care (01) ==
LOC: HO.CHCLDS 09:27
PROVIDERS: Visit Provider Internal Medicine
DX: R79.89 Other specified abnormal findings of blood chemistry (principal)
CPT/HCPCS: 36415; 80076

== ENCOUNTER 2024-07-13 11:51 | Outpatient (REF) | payer MEDICAID, SELFPAY ==
--- NOTE | ~2024-07-13 | US_ITS ---
EXAMINATION: NONINVASIVE ASSESSMENT OF THE ARTERIES OF BOTH LOWER EXTREMITIES CLINICAL INFORMATION: Claudication. COMPARISON: None. TECHNIQUE: Segmental ankle pulse volume recording, pressure measurement at the ankle and ankle brachial indices were obtained of the lower extremity arterial system bilaterally. This study was performed at rest only. FINDINGS: a) AT REST: 1. The ankle-brachial indices are: Right 1.24 and left 1.04. >0.97-1.25 = normal - no significant arterial disease. 0.75-0.96 = mild peripheral arterial disease. 0.5-0.74 = moderate peripheral arterial disease. <0.50 = severe peripheral arterial disease. 2. Segmental pressure at ankle: Normal. 3. PVR waveform at ankle: Normal. US/US SONJA complete IMPRESSION: Normal ABIs bilaterally. Electronically signed by: Juan C Perkins MD 08/01/2024 10:09 PM SOPHIE
== END 2024-07-13 11:52 | disposition home or self-care (01) ==
LOC: HO.XRAY 11:51
PROVIDERS: PCP Internal Medicine; Visit Provider Internal Medicine
DX: M25.561 Pain in right knee (principal); M25.562 Pain in left knee; G89.29 Other chronic pain
CPT/HCPCS: 73560; 73562; 93923

== ENCOUNTER 2024-07-13 12:00 | Outpatient (REF) | payer MEDICAID, SELFPAY | END 2024-07-13 12:01 | disposition home or self-care (01) | LOC: HO.US 12:00 | PROVIDERS: PCP Internal Medicine; Visit Provider Internal Medicine | DX: Z13.89 Encounter for screening for other disorder (principal) ==

== ENCOUNTER 2024-08-30 10:30 | Outpatient (RCR) | payer MEDICAID, SELFPAY | END 2024-09-22 14:23 | disposition home or self-care (01) | LOC: HO.WCC 10:30 | PROVIDERS: PCP Internal Medicine; Visit Provider Surgery | DX: S81.812D Laceration without foreign body, left lower leg, subsequent encounter (principal); I10 Essential (primary) hypertension; X58.XXXD Exposure to other specified factors, subsequent encounter; Z79.899 Other long term (current) drug therapy | CPT/HCPCS: 99212 ==

== ENCOUNTER 2025-03-16 13:37 | Outpatient (AMB) | payer MEDICAID, SELFPAY ==
--- NOTE | 2025-03-16 13:39 | A.OFFVIS_ITS ---
Vital Signs 03/16/25 13:40 Height 5 ft 7 in Weight 157 lb BMI 24.6 Intake Visit Reasons: [employer]-Chronic pain in both knees Intake Note: Ollie is a 55 year old male who presents with complaints of bilateral knee pains. He describes his pains as sharp in nature. His pains have gotten worse over the last few years in spite of continued non operative treatments. He has had cortisone injections in the past. The cortisone injections gave him only several days worth of relief. He has failed the last 3 months of conservative treatment which has included Tylenol, anti-inflammatory medicines, topical gel, physical therapy exercises and a home exercise program. He wishes to hold off on surgery if at all possible. Allergies No Known Allergies Allergy (Verified 03/16/25 13:40) Medication List - Last Reconciled 03/16/25 by Jonnie Tellez MD acetaminophen 3 tabs PO Q8H PRN allopurinol 1 tab DAILY amlodipine 1 tab PO DAILY atenolol 1 tab PO DAILY cholecalciferol (vitamin D3) 1 tab PO DAILY cyanocobalamin (vitamin B-12) 1 tab DAILY folic acid 1 mg PO DAILY lisinopril 1 tab PO DAILY magnesium oxide 800 mg (2 x 400 mg (241.3 mg magnesium)) PO BIDPC thiamine HCl (vitamin B1) 1 tab DAILY PFSH Medical History (Updated 03/16/25 @ 14:08 by Jonnie Tellez MD) Alcohol use disorder, severe, dependence Chest pain Metabolic acidosis, IAG, accumulation of organic acids Hypertension History of alcohol abuse Alcoholic ketoacidosis Rib fracture Surgical History (Updated 04/23/22 @ 06:23 by Med Cazares MD) No pertinent past surgical history Family History (Updated 04/23/22 @ 06:23 by Med Cazares MD) Other No family history of coronary artery disease Social History (Updated 04/23/22 @ 06:23 by Med Cazares MD) Household Members: None Housing: Apartment Do you presently have visiting nurse or other home services: No Alcohol intake: current Alcohol intake frequency: 0-2 drinks per day Alcohol type: beer Patient Tobacco Use Status: Never used Tobacco Tobacco use type: Cigarette Cigarettes Per Day: 5 service: No Current occupational status: unemployed Physical Exam Vital Signs: BMI result Body Mass Index 24.6 Const Other: Well-nourished well-developed very friendly male awake alert and oriented x3 in no acute distress Extrem Other: Bilateral lower extremity examination shows good capillary refill, no skin lesions noted, normal sensation light touch Bilateral knee examination shows minimal effusions, palpable crepitus with range of motion, pain with range of motion, no instability Results Reviewed Results Reviewed: X-rays of the patient's bilateral knee show joint space narrowing, subchondral sclerosis, no acute bony abnormalities Assessment & Plan Assessment & Plan (1) Osteoarthritis of left knee: Code(s): M17.12 - Unilateral primary osteoarthritis, left knee Category: Medical Plan: Mr. Horan presents with bilateral knee pains due to osteoarthritis. I had a lengthy discussion with the patient regarding the treatment options. He wishes to hold off on surgery if at all possible. I agree with this plan. I will see whether or not the patient's insurance company will cover a viscosupplementation injection, such as Durolane, for both of his knees. I will see him back once the injections are available. Feel free to call me at any time should questions regarding his orthopedic management arise. Thank you very much for asking me to see this very friendly gentleman. (2) Osteoarthritis of right knee: Code(s): M17.11 - Unilateral primary osteoarthritis, right knee Category: Medical Plan I spent 22 minutes in reviewing the patient's records and imaging studies, seeing the patient and documenting in the medical record. Coding Level of Care Code New Pt Level 3 (41386) Complex EM visit Add On G2211 Diagnoses Osteoarthritis of left knee M17.12 Osteoarthritis of right knee M17.11
[2025-03-16 13:40] VITALS: BMI 24.6
--- OUTSIDE RECORDS SUMMARY | 2025-03-16 14:15 | XMS_ITS | Encounter Summary ---
Author Organization [employer] Address [address] [place] [address] Care Team Providers Care Pony Rougher Name Role Phone Berto Boyd MD Primary Care Provider [phone] Encounter Details Date Type Department Care Team ([facility] st Contact Info) Description 07/13/2023 Orders Only [facility] [address], [place] [phone] Berto Boyd MD [address] [place] [address] Primary hypertension (Primary Dx); Acute cough Social History Tobacco Use Types Packs/Day Years Used Date Smoking Tobacco: Never Smokeless Tobacco: Never Depression Answer Date Recorded Patient Health Questionnaire-9 Score 2 06/15/2023 Patient Health Questionnaire-9 Score 2 06/15/2023 Last PHQ-9: Questionnaire Data Not on file 1 Housing Stability Answer Date Recorded What is your housing situation today? I have geetha back 06/15/[address] you li ve. Do you have problems with any of the following? None of the above 06/15/2023 Food Insecurity Answer Date Recorded Within the past 12 months, y ou worried that your food would run out before you got money to buy more: Never True 06/15/2023 Within the past 12 months,th e food you bought just didn't last and you didn't have enough money to get more: Never True Transportation Answer Date Recorded In the past 12 months, has l ack of transportation kept you from medical appts, meetings, work or from getting things needed for daily living? No 06/15/2023 Utilities Answer Date Recorded In the past 12 months, has t he electric, gas, oil or water company threatened to shut off services in your home? No 06/15/2023 Depression Answer Date Recorded Patient Health Questionnaire-2 Score 0 06/15/2023 Sex and Gender Information Value Date Recorded Sex Assigned at Male 06/30/2022 10:21 AM EDT Legal Sex Male 10:21 AM EDT Gender Identity Male 06/30/2022 10:21 AM EDT Sexual Orientation Straight 06/30/2022 10 :21 AM EDT documented as of this encounter Plan of Treatment Upcoming Encounters Date Type Department Care Team (Late st Contact Info) Description 04/27/2025 1:00 PM EDT Office Visit [facility] [address], [place] [phone] Berto Boyd MD [address] [place] [address] documented as of this encounter Goals Goal Patient Goal Type Associated Problems Recent Progress Patient-Stated? Author Blood Pressure < 140/90 Blood Pressure 121/84(2024 10:12 AM EDT) No Brandon Butts, PharmD Patient will adhere to medication regimen General Improving( 4:08 PM EDT) No Brandon Butts, PharmD documented as of this encounter Visit Diagnoses Diagnosis Primary hypertension- Primary Unspecified essential hypertension Acute cough documented in this encounter Additional Health Concerns Assessment Noted Time PHQ-9 Depression Total Score: 2 06/15/20 23 9:39 AM EDT documented as of this encounter Care Teams Pony Rougher Relationship Specialty Start Date End Date Berto Boyd MD [address] [place] [address] PCP - General Internal Medicine 08/31/18 documented as of this encounter
== END 2025-03-16 14:05 | disposition home or self-care (01) ==
LOC: HO.HOS 13:38
PROVIDERS: PCP Internal Medicine; Visit Provider Orthopaedic Surgery
DX: M17.0 Bilateral primary osteoarthritis of knee (principal)
CPT/HCPCS: 99203

== ENCOUNTER → 2025-03-16 13:37 | Outpatient (BNVA) | payer MEDICAID, SELFPAY | PROVIDERS: PCP Internal Medicine; Visit Provider Orthopaedic Surgery | DX: M17.0 Bilateral primary osteoarthritis of knee (principal) | CPT/HCPCS: 99202 ==

== ENCOUNTER 2025-04-27 14:13 | Outpatient (AMB) | payer MEDICAID, SELFPAY ==
--- NOTE | 2025-04-27 14:15 | MHC.OFFVIS ---
Vital Signs 04/27/25 14:19 Height 5 ft 7 in Weight 180 lb BMI 28.2 Intake Visit Reasons: Inj- Bilateral Knee Euflexxa #1 Intake Note: Ollie is a 55 year old male who presents with complaints of bilateral knee pains. He describes his pains as sharp in nature. He has failed the last 3 months of conservative treatment which has included Tylenol, anti-inflammatory medicines, physical therapy exercises and a home exercise program. Allergies Seasonal Allergies Allergy (Mild, Verified 04/27/25 14:20) Runny Nose Medication List - Last Reconciled 04/27/25 by Jonnie Tellez MD acetaminophen 3 tabs PO Q8H PRN allopurinol 1 tab DAILY amlodipine 1 tab PO DAILY atenolol 1 tab PO DAILY cholecalciferol (vitamin D3) 1 tab PO DAILY cyanocobalamin (vitamin B-12) 1 tab DAILY folic acid 1 mg PO DAILY lisinopril 1 tab PO DAILY magnesium oxide 800 mg (2 x 400 mg (241.3 mg magnesium)) PO BIDPC thiamine HCl (vitamin B1) 1 tab DAILY PFSH Medical History (Updated 03/16/25 @ 14:08 by Jonnie Tellez MD) Alcohol use disorder, severe, dependence Chest pain Metabolic acidosis, IAG, accumulation of organic acids Hypertension History of alcohol abuse Alcoholic ketoacidosis Rib fracture Surgical History (Updated 04/23/22 @ 06:23 by Med Cazares MD) No pertinent past surgical history Family History (Updated 04/23/22 @ 06:23 by Med Cazares MD) Other No family history of coronary artery disease Social History (Updated 04/23/22 @ 06:23 by Med Cazares MD) Household Members: None Housing: Apartment Do you presently have visiting nurse or other home services: No Alcohol intake: current Alcohol intake frequency: 0-2 drinks per day Alcohol type: beer Patient Tobacco Use Status: Never used Tobacco Tobacco use type: Cigarette Cigarettes Per Day: 5 service: No Current occupational status: unemployed Physical Exam Vital Signs: BMI result Body Mass Index 28.2 Const Other: Well-nourished well-developed very friendly male awake alert and oriented x3 in no acute distress Extrem Other: Bilateral lower extremity examination shows good capillary refill, no skin lesions noted, normal sensation light touch Bilateral knee examination shows minimal effusions, palpable crepitus with range of motion, pain with range of motion, no instability Office Procedures AMB Joint Injection/Aspiration Joint Injection/Aspiration Primary Site: right knee Prep: site was prepped using aseptic technique Injected: 20 mg of (Euflexxa viscosupplementation) and 1% plain lidocaine Procedure: The patient tolerated the procedure well Coding - Large joint Procedure code (CPT) selection complete AMB Joint Injection/Aspiration Joint Injection/Aspiration Primary Site: left knee Prep: site was prepped using aseptic technique Injected: 20 mg of (Euflexxa viscosupplementation) and 1% plain lidocaine Procedure: The patient tolerated the procedure well Coding - Large joint Procedure code (CPT) selection complete Results Reviewed Results Reviewed: X-rays of the patient's bilateral knees taken previously show joint space narrowing, subchondral sclerosis, no acute bony abnormalities Assessment & Plan Assessment & Plan (1) Osteoarthritis of left knee: Code(s): M17.12 - Unilateral primary osteoarthritis, left knee Category: Medical (2) Osteoarthritis of right knee: Code(s): M17.11 - Unilateral primary osteoarthritis, right knee Category: Medical Plan Mr. Horan presents with bilateral knee pains due to osteoarthritis. The risks and benefits of bilateral knee Euflexxa viscosupplementation injections were discussed at length with the patient. The patient wished to proceed. He tolerated the injections well. He will continue with his home exercise program. He will follow up next week as scheduled. Feel free to call me at any time should questions regarding his orthopedic management arise. I spent 22 minutes in reviewing the patient's records and imaging studies, seeing the patient and documenting in the medical record. Orders: Orders AMB Joint Injection/Aspiration Today M17.11 - Unilateral primary osteoarthritis, right knee AMB Joint Injection/Aspiration Today M17.12 - Unilateral primary osteoarthritis, left knee Coding Level of Care Code Est Pt Level 3 (98017) Complex EM visit Add On G2211 Diagnoses Osteoarthritis of left knee M17.12 Osteoarthritis of right knee M17.11 CPT Codes Coding - 10664 Large joint: 45666 - Large joint ([id number]) Coding - 66051 Large joint: 96824 - Large joint ([id number])
[2025-04-27 14:19] VITALS: BMI 28.2
--- OUTSIDE RECORDS SUMMARY | 2025-04-27 15:00 | XMS_ITS | Encounter Summary ---
Author Organization [employer] Address [address] [facility] 7 [place] [address] Care Team Providers Care Cooker Operator Name Role Phone Berto Boyd MD Primary Care Provider [phone] Encounter Details Date Type Department Care Team (Late Contact Info) Description 04/17/2023 Orders Only [facility] MED & PEDS [address] [place] [address] Berto Boyd MD [address] [place] [address] Primary hypertension (Primary Dx) Social History Tobacco Use Types Packs/Day Years Used Date Smoking Tobacco: Never Smokeless Tobacco: Never Depression Answer Date Recorded Patient Health Questionnaire-9 Score 0 12/18/2022 Sex and Gender Information Value Date Recorded Sex Assigned at Male 06/30/2022 10:21 AM EDT Legal Sex Male 10:21 AM EDT Gender Identity Male 06/30/2022 10:21 AM EDT Sexual Orientation Straight 06/30/2022 10 :21 AM EDT documented as of this encounter Plan of Treatment Upcoming Encounters Date Type Department Care Team (Late st Contact Info) Description 06/08/2025 1:45 PM EDT Office Visit [facility] [address] [place] [address] Berto Boyd MD [address] [place] [address] documented as of this encounter Goals Goal Patient Goal Type Associated Problems Recent Progress Patient-Stated? Author Blood Pressure < 140/90 Blood Pressure 121/84(2024 10:12 AM EDT) No Brandon Butts, PharmD Patient will adhere to medication regimen General Improving( 4:08 PM EDT) No Brandon Butts PharmD documented as of this encounter Visit Diagnoses Diagnosis Primary hypertension- Primary Unspecified essential hypertension documented in this encounter Additional Health Concerns Assessment Noted Time PHQ-9 Depression Total Score: 0 12/19/19 23 9:42 AM EDT documented as of this encounter Care Teams Cooker Operator Relationship Specialty Start Date End Date Berto Boyd MD [address] [place] [id number] PCP - General Internal Medicine 08/31/18 documented as of this encounter
--- OUTSIDE RECORDS SUMMARY | 2025-04-27 15:00 | XMS_ITS | Encounter Summary ---
Author Organization [employer] Address [address] [facility] 7[address] [place] [address] Care Team Providers Care Newsroom Intern Name Role Phone Berto Boyd MD Primary Care Provider [phone] Encounter Details Date Type Department Care Team ([facility] st Contact Info) Description 01/26/2025 Orders Only [facility] MED & PEDS [address] [place], [place] [phone] Berto Boyd MD [address] [place] [address] Chronic pain of both knees; Primary osteoarthritis of both knees Social History Tobacco Use Types Packs/Day Years Used Date Smoking Tobacco: Never Passive Smoke Exposure: Never Smokeless Tobacco: Never Alcohol Use Standard Drinks/Week Comments Not Asked 0 (1 standard drink = 0.6 oz pur e alcohol) had a glass of wine yesterday Alcohol Answer Date Recorded Q1: How often do you have a drink containing alc ohol? 3 07/04/2024 Q2: How many drinks containi ng alcohol do you have on a typical day when you are drinking? 1 07/04/2024 Q3: How often do you have six or more drinks on one occasion? 2 07/04/2024 Depression Answer Date Recorded Patient Health Questionnaire-9 Score 5 07/04/2024 Patient Health Questionnaire-9 Score 5 07/04/2024 Last PHQ-9: Questionnaire Data Not on file 1 09/03/2023 Housing Stability Answer Date Recorded What is your housing situation today? I have geetha back 07/04/[address] you li ve. Do you have problems with any of the following? None of the above 07/04/2024 Food Insecurity Answer Date Recorded Within the past 12 months, y ou worried that your food would run out before you got money to buy more: Never True 07/04/2024 Within the past 12 months,th e food you bought just didn't last and you didn't have enough money to get more: Never True 11/2023 Transportation Answer Date Recorded In the past 12 months, has l ack of transportation kept you from medical appts, meetings, work or from getting things needed for daily living? No 07/04/2024 Utilities Answer Date Recorded In the past 12 months, has t he electric, gas, oil or water company threatened to shut off services in your home? No 07/04/2024 Depression Answer Date Recorded Patient Health Questionnaire-2 Score 1 07/04/2024 Internet Access Answer Date Recorded Internet Access Q1 Yes 07/04/2024 Internet Access Q2 Not on file 07/04/2024 Sex and Gender Information Value Date Recorded Sex Assigned at Male 06/30/2022 10:21 AM EDT Legal Sex Male 10:21 AM EDT Gender Identity Male 06/30/2022 10:21 AM EDT Sexual Orientation Straight 06/30/2022 10 :21 AM EDT documented as of this encounter Plan of Treatment Upcoming Encounters Date Type Department Care Team (Late st Contact Info) Description 06/08/2025 1:45 PM EDT Office Visit [facility] MED & PEDS [address] [place] [address] Berto Boyd MD [address] [place] [address] documented as of this encounter Goals Goal Patient Goal Type Associated Problems Recent Progress Patient-Stated? Author Blood Pressure < 140/90 Blood Pressure 121/84(2024 10:12 AM EDT) No Brandon Butts, PharmD Patient will adhere to medication regimen General Improving( 4:08 PM EDT) No Brandon Butts, PharmD documented as of this encounter Visit Diagnoses Diagnosis Chronic pain of both knees Primary osteoarthritis of both knees documented in this encounter Additional Health Concerns Assessment Noted Time PHQ-9 Depression Total Score: 5 07/04/20 24 9:37 AM EST documented as of this encounter Care Teams Newsroom Intern Relationship Specialty Start Date End Date Berto Boyd MD [address] [place] [id number] PCP - General Internal Medicine 08/31/18 documented as of this encounter
--- OUTSIDE RECORDS SUMMARY | 2025-04-27 15:00 | XMS_ITS | Encounter Summary ---
Author Organization [employer] Address [address] [facility] 7[address] [place] [address] Care Team Providers Care Sap Portal Consultant Name Role Phone Berto Boyd MD Primary Care Provider [phone] Reason for Visit * Reason Comments Med Refill Encounter Details Date Type Department Care Team ([facility] st Contact Info) Description 04/25/2025 Refill [facility] MED & PEDS [address] [place], [place] [phone] Berto Boyd MD [address] [place] [address] Alcohol dependence, uncomplicated (CMS/HCC) Social History Tobacco Use Types Packs/Day Years [...] Description 06/08/2025 1:45 PM EDT Office Visit [facility] MED & PEDS [address] [place] [address] Berto Boyd MD [address] [place] [address] documented as of this encounter Goals Goal Patient Goal Type Associated Problems Recent Progress Patient-Stated? Author Blood Pressure < 140/90 Blood Pressure 121/84(2024 10:12 AM EDT) No Brandon Butts, PharmD Patient will adhere to medication regimen General Improving( 4:08 PM EDT) No Brandon Butts, PharmD documented as of this encounter Visit Diagnoses Diagnosis Alcohol dependence, uncomplicated (CMS/HCC) documented in this encounter Additional Health Concerns Assessment Noted Time PHQ-9 Depression Total Score: 5 07/04/20 24 9:37 AM EST documented as of this encounter Care Teams Sap Portal Consultant Relationship Specialty Start Date End Date Berto Boyd MD [address] [place] [id number] PCP - General Internal Medicine 08/31/18 documented as of this encounter
--- OUTSIDE RECORDS SUMMARY | 2025-04-27 15:00 | XMS_ITS | Encounter Summary ---
Author Organization [employer] Address [address] [facility] 7 [place] [address] Care Team Providers Care Hotel Operation Manager Name Role Phone Berto Boyd MD Primary Care Provider [phone] Reason for Visit * Reason Comments Med Refill Encounter Details Date Type Department Care Team ([facility] st Contact Info) Description 01/05/2024 Refill [facility]S [address] [place], [place] [phone] Berto Boyd MD [address] [place] [address] Primary hypertension Social History Tobacco Use Types Packs/Day Years Used Date Smoking Tobacco: Never Smokeless Tobacco: Never Depression Answer Date Recorded Patient Health Questionnaire-9 Score 2 06/15/2023 Patient Health Questionnaire-9 Score 2 06/15/2023 Last PHQ-9: Questionnaire Data Not on file 1 Housing Stability Answer Date Recorded What is your housing situation today? Not on kori e 09/07/[address] you li ve. Do you have problems with any of the following? None of the above 09/07/2023 Food Insecurity Answer Date Recorded Within the [...] Description 06/08/2025 1:45 PM EDT Office Visit [facility] & PEDS [address] [place] [address] Berto Boyd MD [address] [place] [address] documented as of this encounter Goals Goal Patient Goal Type Associated Problems Recent Progress Patient-Stated? Author Blood Pressure < 140/90 Blood Pressure 121/84(2024 10:12 AM EDT) No Brandon Butts, PharmD Patient will adhere to medication regimen General Improving( 4:08 PM EDT) No Brandon Butts, PharmD documented as of this encounter Visit Diagnoses Diagnosis Primary hypertension Unspecified essential hypertension documented in this encounter Additional Health Concerns Assessment Noted Time PHQ-9 Depression Total Score: 2 06/15/20 23 9:39 AM EDT documented as of this encounter Care Teams Hotel Operation Manager Relationship Specialty Start Date End Date Berto Boyd MD [address] [place] [address] PCP - General Internal Medicine 08/31/18 documented as of this encounter
--- OUTSIDE RECORDS SUMMARY | 2025-04-27 15:00 | XMS_ITS | Clinical Summary ---
Author Organization [employer] Address [address] [place] [address] [address] [place] [address] Care Team Providers Care Lumber Stacker Operator Name Role Phone Berto Boyd MD Primary Care Provider Allergies No known active allergies Medications B-Complex, Folic Acid, tabletIndications:A lcohol dependence, uncomplicated (CMS/HCC) TAKE ONE TABLET EVERY MORNING 30 tablet 11 4 Active melatonin 3 MG tabletIndications:O ther insomnia TAKE ONE TABLET AT BEDTIME 30 tablet 11 4 Active losartan (Cozaar) 100 MG tabletIndications:P rimary hypertension TAKE ONE TABLET EVERY MORNING 30 tablet 11 5 Active Diclofenac Sodium 1 % gelIndications:Left leg pain APPLY TWO grams TO THE AFFECTED AREA(s) FOUR TIMES DAILY 100 g 3 5 Active cholecalciferol (Vitamin D-3) 25 MCG tabletIndications:V itamin D deficiency TAKE ONE TABLET EVERY MORNING 60 tablet 11 5 Active allopurinol (Zyloprim) 300 MG tabletIndications:I diopathic chronic gout, unspecified site, without tophus (tophi) TAKE ONE TABLET EVERY MORNING 90 tablet 3 5 Active acetaminophen (Tylenol 8 Hour) 650 MG ER tablet TAKE ONE TABLET BY MOUTH EVERY 8 HOURS NEEDED 60 tablet 5 5 Active traZODone (Desyrel) 50 MG tabletIndications:P rimary insomnia Take 1 tablet (50 mg) by mouth at bedtime. 30 tablet 2 5 Active Elastic Bandages & Supports (Knee Brace Adjustable Hinged) miscIndications:Chr onic pain of both knees,Primary osteoarthritis of both knees Hinge knee brace. To wear daily. 2 each 5 Active amLODIPine (Norvasc) 10 MG tabletIndications:P rimary hypertension TAKE 1 TABLET BY MOUTH EVERY MORNING 90 tablet 3 5 Active atenolol (Tenormin) 50 MG tabletIndications:P rimary hypertension TAKE 1 TABLET BY MOUTH EVERY MORNING 90 tablet 3 5 Active Vitamins-Lipotropic s (B Complex Formula 1, Lipotrop,) tabletIndications:A lcohol dependence, uncomplicated (CMS/HCC) TAKE ONE TABLET EVERY MORNING 90 tablet 1 5 Active Active Problems Problem Noted Date Diagnosed Date Primary osteoarthritis of both knees 01/26/2025 Gout 02/02/2023 Left leg pain 02/04/2018 Alcoholism 03/16/2014 Cobalamin deficiency 03/16/2014 Hypertension 03/16/2014 Encounters Date Type Department Care Team Description 04/25/2025 Refill [facility] [address] [place] [address] Berto Boyd MD Alcohol dependence, uncomplicated (CMS/HCC) 01/31/2025 Refill [facility] [address] [place] [address] Berto Boyd MD Primary hypertension 01/26/2025 10:30 AM EDT Office Visit [facility] [address] [place] [address] Berto Boyd MD Primary hypertension (Primary Dx); Primary insomnia; Dietary counseling; Exercise counseling; Overweight; Chronic pain of both knees; Primary osteoarthritis of both knees 01/26/2025 Orders Only [facility] [address] [place] [address] Berto Boyd MD Chronic pain of both knees; Primary osteoarthritis of both knees 01/26/2025 Travel from Last 3 Months Immunizations Immunization Administration Dates Next Due Hep B, adult 10/20/2024,07/04/2024,03/14/2024 Influenza Injectable Quadriv alant Preservative Free IIV4 MDCK 07/22/2021 Influenza injectable quadriv alent IIV4 with preservative 06/23/2019,06/01/2018 Influenza injectable quadriv alent preservative free 05/09/2022 Influenza, IIV3, injectable 07/31/2014 Influenza, seasonal, injecta ble, preservative free 07/04/2024 Moderna Covid-19 Vaccine 12+ 07/27/2021,01/15/20 21 Pfizer Covid-19 Vaccine 12+ 07/04/2024 Pneumococcal Conjugate PCV 20 03/14/2024, 023 Pneumococcal Polysaccharide PPSV23 05/08/2017 Tdap 05/01/2022,03/19/2022,07/29/2017 Zoster, Recombinant 07/21/2022,04/28/2022 Family History Medical History Relation Name Comments Prostate cancer Father Breast cancer Mother Relation Name Status Comments Father Mother Social History Tobacco Use Types Packs/Day Years Used Date Smoking Tobacco: Never Passive Smoke Exposure: Never Smokeless Tobacco: Never Tobacco Cessation:Counseling Given: Not Answered Alcohol Use Standard Drinks/Week Comments Not Asked [...] Orientation Straight 06/30/2022 10 :21 AM EDT Last Filed Vital Signs Vital Sign Reading Time Taken Comments Blood Pressure 121/84 01/26/2025 10:12 AM EDT Pulse 75 01/26/2025 10:12 AM EDT Temperature 36.7 C (98 F) 01/26/2025 10:12 AM EDT Respiratory Rate 20 01/26/2025 10:12 AM EDT Oxygen Saturation 97% 01/26/2025 10:12 AM EDT Inhaled Oxygen Concentration - - Weight 86.6 kg (191 lb) 01/26/2025 10:12 AM EDT Height 170.2 cm (5' 7 ) 01/26/2025 10:12 AM EDT Body Mass Index 29.91 01/26/2025 10:12 AM EDT Plan of Treatment Upcoming Encounters Date Type Department Care Team ([facility] st Contact Info) Description 06/08/2025 1:45 PM EDT Office Visit [facility] [address] [place] [address] Berto Boyd MD [address] [place] [address] Health Maintenance Due Date Last Done Comments CT Colonography 1968 Colonoscopy 1968 FIT 1968 FOBT 1968 HIV Screening 1968 Lipid Panel 1968 Sigmoidoscopy 1968 Disability Screening 1968 Influenza Vaccine (#1) 2025 , 05/09/2022, 07/22/2021, Additional history exists Alcohol/Substance Use Screening 07/04/2025 07/04/2024 Depression Screening 07/04/2025 07/04/2024, 07/04/20 24 SDOH Screening 07/04/2025 07/04/2024 Tobacco Screening 01/26/2026 01/26/2025 Colorectal Cancer Screening 11/25/2026 FIT DNA/Cologuard 11/25/2026 11/26/2023 DTaP/Tdap/Td Vaccines (4 - Td or Tdap) 05/01/2032 05/01/2022, 03/19/2022, 07/29/2017 RSV Patients and Patients Aged 60 years or older (1 - 1-dose 75+ series) 01/19/2043 Zoster Vaccines Completed 07/21/2022, 04/28/2022 Hepatitis C Screening Completed 01/16/2023 Pneumococcal Vaccine: 50+ Years Completed 03/14/2024, 02/26/2023, 05/08/2017 COVID-19 Vaccine Completed 07/04/2024, , 01/14/2021 Hepatitis B Vaccines Completed 10/20/2024, 07/04/2024, 03/14/2024 HIB Vaccines Aged Out No longer eligi ble based on patient's age to complete this topic HPV Vaccines Aged Out No longer eligi ble based on patient's age to complete this topic Hepatitis A Vaccines Aged Out No long er eligible based on patient's age to complete this topic IPV Vaccines Aged Out No longer eligi ble based on patient's age to complete this topic Meningococcal B Vaccine Aged Out No l onger eligible based on patient's age to complete this topic Meningococcal Vaccine Aged Out No carlos cathleen eligible based on patient's age to complete this topic RSV under 20 months Aged Out No longe r eligible based on patient's age to complete this topic Rotavirus Vaccines Aged Out No longer eligible based on patient's age to complete this topic Goals Goal Patient Goal Type Associated Problems Recent Progress Patient-Stated? Author Blood Pressure < 140/90 Blood Pressure 121/84(2024 10:12 AM EDT) No Brandon Butts, PharmD Patient will adhere to medication regimen General Improving( 4:08 PM EDT) No Brandon Butts, PharmD Procedures Procedure Name Priority Date/Time Associated Diagnosis Comments LAB COLOGUARD COLON CANCER SCREEN Routine 11/26/2023 9:00 PM EDT Screening for colon cancer HEPATITIS PANEL, GENERAL Routine 01/16/2023 8:42 AM EDT Abnormal LFTs from Last 3 Months or Most Recently Relevant to Health Maintenance Results * Cologuard?? colon cancer screening (11/26/2023 9:00 PM EDT) Cologuard Result Negative Negative 12/03/19 1:12 AM EDT [facility] (CLIA #:[id number]) Comment: NEGATIVE TEST RESULT. A negative Cologuard result indicates a low likelihood that a colorectal cancer (CRC) or advanced adenoma (adenomatous polyps with more advanced pre-malignant features) is present. The chance that a person with a negative Cologuard test has a colorectal cancer is less than 1 in 1500 (negative predictive value >99.9%) or has an advanced adenoma is less than 5.3% (negative predictive value 94.7%). These data are based on a prospective cross-sectional study of 10,000 individuals at average risk for colorectal cancer who were screened with both Cologuard and colonoscopy. (Michell Qureshi al, N Engl J Med 2014;370(14):8723-6256) The normal value (reference range) for this assay is negative. COLOGUARD RE-SCREENING RECOMMENDATION: Periodic colorectal cancer screening is an important part of preventive healthcare for asymptomatic individuals at average risk for colorectal cancer. Following a negative Cologuard result, the [place] Cancer Society and U.S. Multi-Society Task Force screening guidelines recommend a Cologuard re-screening interval of 3 years. References: [place] [employer] Society Guideline for Colorectal Cancer Screening: https://www.cancer.org/cancer/zgfva-jebhrb-vvdgzy/eupbmsefd-icwxrllks-wxcmupb/ac s-rec ommendations.html.; Bryce DK, Roman CR, Myrna GoodmanK, Colorectal Cancer Screening: Recommendations for Physicians and Patients from the U.S. Multi-Society Task Force on Colorectal Cancer Screening , Am J Gastroenterology 2017; 112:8171-8103. TEST DESCRIPTION: Composite algorithmic analysis of stool DNA-biomarkers with hemoglobin immunoassay. Quantitative values of individual biomarkers are not reportable and are not associated with individual biomarker result reference ranges. Cologuard is intended for colorectal cancer screening of adults of either sex, 45 years or older, who are at average-risk for colorectal cancer (CRC). Cologuard has been approved for use by the U.S. FDA. The performance of Cologuard was established in a cross sectional study of average-risk adults aged 50-84. Cologuard performance in patients ages 45 to 49 years was estimated by sub-group analysis of near-age groups. Colonoscopies performed for a positive result may find as the most clinically significant lesion: colorectal cancer [4.0%], advanced adenoma (including sessile serrated polyps greater than or equal to 1cm diameter) [20%] or non- advanced adenoma [31%]; or no colorectal neoplasia [45%]. These estimates are derived from a prospective cross-sectional screening study of 10,000 individuals at average risk for colorectal cancer who were screened with both Cologuard and colonoscopy. (Michell Garcia. et al, N Engl J Med 2014;370(14):1417-6387.) Cologuard may produce a false negative or false positive result (no colorectal cancer or precancerous polyp present at colonoscopy follow up). A negative Cologuard test result does not guarantee the absence of CRC or advanced adenoma (pre-cancer). The current Cologuard screening interval is every 3 years. ([place] Cancer Society and U.S. Multi-Society Task Force). Cologuard performance data in a 10,000 patient pivotal study using colonoscopy as the reference method can be accessed at the following location: www.[employer].com/results. Additional description of the Cologuard test process, warnings and precautions can be found at www.cologLiquidTextrd.com. Stool specimen (specimen) 11/26/2023 9:00 PM EDT 11/28/2023 12:00 PM EDT us Berto Boyd MD LAB MOLECULAR DIAGNOSTICS O RDERABLES Final Result [facility] (CLIA #:[id number]) [place] [address] [place] [address], * (ABNORMAL) Hepatitis Panel, General (01/16/2023 8:42 AM EDT) Hepatitis A Antibody Total REACTIVE( A) NON-REACT SHERICE [facility] Comment: For additional information, please refer to http://[employer]/faq/BRT794 (This link is being provided for informational/ educational purposes only.) Hepatitis B Surface Antibody QL NON-REACT SHERICE NON-REACT SHERICE [employer] Hepatitis B Surface Ag NON-REACT SHERICE NON-REACT SHERICE [place] [facility] [place] [facility] Hepatitis B Core Antibody Total NON-REACT SHERICE NON-REACT SHERICE [place] [facility] Hepatitis C Antibody NON-REACT SHERICE NON-REACT SHERICE [facility] Index 0.08 <1.00 [facility] Comment: HCV antibody was non-reactive. There is no laboratory evidence of HCV infection. In most cases, no further action is required. However, if recent HCV exposure is suspected, a test for HCV RNA (test code 56768) is suggested. For additional information please refer to http://[employer]/faq/ZSR63j8 (This link is being provided for informational/ educational purposes only.) 01/16/2023 8:42 AM EDT 01/16/2023 8:42 AM EDT Berto Boyd MD LAB BLOOD ORDERABLES Final Result Performing Organization Address City/[facility]/ZIP Co de Phone Number [facility] [address], [place] [address] [facility] [facility] [place] [facility] [address] [place] [address] from Last 3 Months or Most Recently Relevant to Health Maintenance Insurance [address] [place], [place] [address] Care Teams Lumber Stacker Operator Relationship Specialty Start Date End Date Berto Boyd MD [address] [place] [address] PCP - General Internal Medicine 08/31/18
--- OUTSIDE RECORDS SUMMARY | 2025-04-27 15:00 | XMS_ITS | Encounter Summary ---
Author Organization [employer] Address [address] [place] [address] Care Team Providers Care Mail List Processor Name Role Phone Berto Boyd MD Primary Care Provider [phone] Encounter Details Date Type Department Care Team ([facility] st Contact Info) Description 07/13/2023 Orders Only [facility] [address] [place], [place] [phone] Berto Boyd MD [address] [place] [address] Primary hypertension (Primary Dx); Acute cough Social [...] Description 06/08/2025 1:45 PM EDT Office Visit [facility] [address] [place], [place] [phone] Berto Boyd MD [address] [place] [address] documented as of this encounter Goals Goal [...] documented as of this encounter Care Teams Mail List Processor Relationship Specialty Start Date End Date Berto Boyd MD [address] [place] [address] PCP - General Internal Medicine 08/31/18 documented as of this encounter
--- OUTSIDE RECORDS SUMMARY | 2025-04-27 15:00 | XMS_ITS | Encounter Summary ---
Author Organization [employer] Address [address] [facility] [place] [address] Care Team Providers Care Water Vessel Captain Name Role Phone Berto Boyd MD Primary Care Provider [phone] Reason for Visit * Reason Onset Date Comments Appointment Request 09/10/2022 Encounter Details Date Type Department Care Team ([facility] st Contact Info) Description 09/10/2022 Telephone [facility] [address] [place] [address] Berto Boyd MD [address] [place] [address] Appointment Request Social History Tobacco Use Types Packs/Day Years Used Date Smoking Tobacco: Never Assessed Sex and Gender Information Value Date Recorded Sex Assigned at Male 06/30/2022 10:21 AM EDT Legal Sex Male 10:21 AM EDT Gender Identity Male 06/30/2022 10:21 AM EDT Sexual Orientation Straight 06/30/2022 10 :21 AM EDT documented as of this encounter Miscellaneous Notes * Telephone Encounter - Cathie Gardner RN - 09/11/2022 9:30 AM EST Call to pt. Requesting to r/s visit to 09/18/22. Agrees to visit on 09/18/22 @2:45pm. Pt requesting medication refills. States he ran out of the meds that were prescribed to him at the hospital. Pt unsure of medication name. Thinks they start with A .Per pt, ran out yesterday. Advised will forward to PCP to review request. Noted in [facility] discharge notes dated 08/22/22: Rx Allopurinol 300mg 1 tab PO daily, Amlodipine 10mg, 1 tab PO daily for 30 tabs. Other meds listed are Vitamin D, Vitamin B12, Diclofenac topical, Folic Acid, Multivitamin, Mupirocin, Naltrexone, and Thiamine. Will send notes to scan. Please review and advise. Thank you. * Telephone Encounter - Ricci Ayala - 09/10/2022 2:45 PM EST Tc from pt requesting to r/s appt 09/08/22 at 09:00 am (HDF: [facility] Admitted on 08/20/22- 08/23/22 ForHypotension, DERECK) Please contact pt at [phone] documented in this encounter Plan of Treatment Upcoming Encounters Date Type Department Care Team (Late st Contact Info) Description 06/08/2025 1:45 PM EDT Office Visit [facility] [address] [place] [address] Berto Boyd MD [address] [place] [address] documented as of this encounter Visit Diagnoses Diagnosis Alcoholism (CMS/[facility])- Primary Other and unspecified alcohol dependence, unspecified drinking behavior Vitamin B12 deficiency Other B-complex deficiencies Idiopathic chronic gout without tophus, unspecified site Primary hypertension Unspecified essential hypertension Left leg pain Pain in soft tissues of limb Vitamin D deficiency documented in this encounter Care Teams Water Vessel Captain Relationship Specialty Start Date End Date Berto Boyd MD [address] [place] [address] PCP - General Internal Medicine 08/31/18 documented as of this encounter
== END 2025-04-27 14:43 | disposition home or self-care (01) ==
LOC: HO.HOS 14:13
PROVIDERS: PCP Internal Medicine; Visit Provider Orthopaedic Surgery
DX: M17.0 Bilateral primary osteoarthritis of knee (principal)
CPT/HCPCS: 20610; 99213

== ENCOUNTER → 2025-04-27 14:13 | Outpatient (BNVA) | payer MEDICAID, SELFPAY | PROVIDERS: PCP Internal Medicine; Visit Provider Orthopaedic Surgery | DX: M17.12 Unilateral primary osteoarthritis, left knee (principal); M17.11 Unilateral primary osteoarthritis, right knee | CPT/HCPCS: 20610; 99212; J2003; J7323 ==

== ENCOUNTER 2025-05-04 13:08 | Outpatient (AMB) | payer MEDICAID, SELFPAY ==
--- NOTE | 2025-05-04 13:16 | A.OFFVIS_ITS ---
Vital Signs 05/04/25 13:18 Height 5 ft 7 in Weight 170 lb BMI 26.6 Intake Visit Reasons: Inj- Bilateral Knee Euflexxa #2 Intake Note: Ollie is a 55 year old male who presents for follow-up of his bilateral knee pains. At his last visit he was given the 1st set of Euflexxa injections. The patient states he got mild relief from the injections. He continues with his h ome exercise program. Allergies Seasonal Allergies Allergy (Mild, Verified 05/04/25 13:19) Runny Nose Medication List - Last Reconciled 05/04/25 by Jonnie Tellez MD acetaminophen 3 tabs PO Q8H PRN allopurinol 1 tab DAILY amlodipine 1 tab PO DAILY atenolol 1 tab PO DAILY cholecalciferol (vitamin D3) 1 tab PO DAILY cyanocobalamin (vitamin B-12) 1 tab DAILY folic acid 1 mg PO DAILY lisinopril 1 tab PO DAILY magnesium oxide 800 mg (2 x 400 mg (241.3 mg magnesium)) PO BIDPC thiamine HCl (vitamin B1) 1 tab DAILY PFSH Medical History Alcohol use disorder, severe, dependence Chest pain Metabolic acidosis, IAG, accumulation of organic acids Hypertension History of alcohol abuse Alcoholic ketoacidosis Rib fracture Surgical History No pertinent past surgical history Family History Other No family history of coronary artery disease Social History Household Members: None Housing: Apartment Do you presently have visiting nurse or other home services: No Alcohol intake: current Alcohol intake frequency: 0-2 drinks per day Alcohol type: beer Patient Tobacco Use Status: Never used Tobacco Tobacco use type: Cigarette Cigarettes Per Day: 5 service: No Current occupational status: unemployed Physical Exam Vital Signs: BMI result Body Mass Index 26.6 Extrem Other: Bilateral knee examination shows minimal effusions, palpable crepitus with range of motion, pain with range of motion, no instability Office Procedures AMB Joint Injection/Aspiration Joint Injection/Aspiration Primary Site: right knee Prep: site was prepped using aseptic technique Injected: 20 mg of (Euflexxa viscosupplementation) and 1% plain lidocaine Coding - Large joint Procedure code (CPT) selection complete AMB Joint Injection/Aspiration Joint Injection/Aspiration Primary Site: left knee Prep: site was prepped using aseptic technique Injected: 20 mg of (Euflexxa viscosupplementation) and 1% plain lidocaine Procedure: The patient tolerated the procedure well Coding - Large joint Procedure code (CPT) selection complete Assessment & Plan Assessment & Plan (1) Osteoarthritis of left knee: Code(s): M17.12 - Unilateral primary osteoarthritis, left knee Category: Medical (2) Osteoarthritis of right knee: Code(s): M17.11 - Unilateral primary osteoarthritis, right knee Category: Medical Plan Ollie presents with bilateral knee pains due to osteoarthritis. The risks and benefits of a 2nd set of Euflexxa viscosupplementation injections were discussed at length with the patient. The patient wished to proceed. He tolerated the injections well. He will continue with his home exercise program. He will follow up next week as scheduled. Feel free to call me at any time should questions regarding his orthopedic management arise. Orders: Orders AMB Joint Injection/Aspiration Today M17.12 - Unilateral primary osteoarthritis, left knee AMB Joint Injection/Aspiration Today M17.11 - Unilateral primary osteoarthritis, right knee Coding Level of Care Code Procedure Only Diagnoses Osteoarthritis of left knee M17.12 Osteoarthritis of right knee M17.11 CPT Codes Coding - 07853 Large joint: 01439 - Large joint ([id number]) Coding - 83262 Large joint: 47278 - Large joint ([id number])
[2025-05-04 13:18] VITALS: BMI 26.6
--- OUTSIDE RECORDS SUMMARY | 2025-05-04 14:22 | XMS_ITS | Clinical Summary ---
Author Organization [employer] Address [address] [place] [address] 7t [place] [address] Care Team Providers Care Sanitary Engineering Teacher Name Role Phone Berto Boyd MD Primary [...] Type Department Care Team Description 04/25/2025 Refill [facility] [address] [place] [address] Berto Boyd MD Alcohol dependence, uncomplicated (CMS/HCC) from Last 3 Months Immunizations Immunization Administration [...] Upcoming Encounters Date Type Department Care Team ([facility] st Contact Info) Description 06/08/2025 1:45 PM EDT Office Visit [facility] [address] [place] [address] Berto Boyd MD [address] [place], [place] [phone] Health Maintenance Due Date Last Done Comments CT Colonography 1968 Colonoscopy 1968 FIT 1968 HIV Screening 1968 Lipid Panel 1968 Sigmoidoscopy 1968 Disability Screening 1968 FOBT 11/25/2024 11/26/2023 Influenza Vaccine (#1) 2025 , 05/09/2022, 07/22/2021, [...] Improving( 4:08 PM EDT) No Brandon Butts, PharmCarisa Procedures Procedure Name Priority Date/Time Associated Diagnosis Comments LAB COLOGUARD COLON CANCER SCREEN Routine 11/26/2023 9:00 PM EDT Screening for colon cancer HEPATITIS PANEL, GENERAL Routine 01/16/2023 8:42 AM EDT Abnormal LFTs from Last 3 Months or Most Recently Relevant to Health Maintenance Results * Cologuard?? colon cancer screening (11/26/2023 9:00 PM EDT) Cologuard Result Negative Negative 12/03/19 24 1:12 AM EDT [facility] (CLIA #:[id number]) Comment: NEGATIVE TEST RESULT. A negative Cologuard [...] Garcia. et al, N Engl J Med 2014;370(14):9717-5939) The normal value (reference range) for this assay is negative. COLOGUARD RE-SCREENING RECOMMENDATION: Periodic colorectal cancer screening is an important part of preventive healthcare for asymptomatic individuals at average risk for colorectal cancer. Following a negative Cologuard result, the [place] Cancer Society and U.S. Multi-Society Task Force screening guidelines recommend a Cologuard re-screening interval of 3 years. References: [place] Cancer Society Guideline for Colorectal Cancer Screening: https://www.cancer.org/cancer/vguvo-luosnt-agfeci/vyljdnaal-ryiisdvwd-dobthzu/ac s-rec ommendations.html.; Bryce QURESHI, Roman ALMANZA, Myrna GoodmanK, Colorectal Cancer Screening: Recommendations for Physicians and Patients from the U.S. Multi-Society Task Force on Colorectal Cancer Screening , Am J Gastroenterology 2017; 112:5294-9897. TEST DESCRIPTION: Composite algorithmic analysis of stool [...] Garcia. et al, N Engl J Med 2014;370(14):5805-0040.) Cologuard may produce a false negative or false positive result (no colorectal cancer or precancerous polyp present at colonoscopy follow up). A negative Cologuard test result does not guarantee the absence of CRC or advanced adenoma (pre-cancer). The current Cologuard screening interval is every 3 years. ([place] Cancer Society and U.S. Multi-Society Task Force). Cologuard performance data in a 10,000 patient pivotal study using colonoscopy as the reference method can be accessed at the following location: www.Primeloop/results. Additional description of the Cologuard test process, warnings and precautions can be found at www.8aweekrd.Cache IQ. Stool specimen (specimen) 11/26/2023 9:00 PM EDT 11/28/2023 12:00 PM EDT Berto Boyd MD LAB MOLECULAR DIAGNOSTICS O RDERABLES Final Result [facility] (CLIA #:[id number]) Efren Agu[place] [address], * (ABNORMAL) Hepatitis Panel, General (01/16/2023 8:42 AM EDT) Hepatitis A Antibody Total REACTIVE( A) NON-REACT [employer] [facility] Comment: For additional information, please refer to http://education.Jostle/faq/XEG773 (This link is being provided for informational/ educational purposes only.) Hepatitis B Surface Antibody QL NON-REACT SHERICE NON-REACT [employer] [place] [employer] Hepatitis B Surface Ag NON-REACT SHERICE NON-REACT SHERICE [employer] [place] [employer] Hepatitis B Core Antibody Total NON-REACT SHERICE NON-REACT SHERICE [facility] [place] [employer] Hepatitis C Antibody NON-REACT SHERICE NON-REACT SHERICE [employer] [place] [employer] Index 0.08 <1.00 [facility] [place] [employer] [facility] Comment: HCV antibody was non-reactive. There is no laboratory evidence of HCV infection. In most cases, no further action is required. However, if recent HCV exposure is suspected, a test for HCV RNA (test code 50670) is suggested. For additional information please refer to http://education.Jostle/faq/WGR83v4 (This link is being provided for informational/ educational purposes only.) 01/16/2023 8:42 AM EDT 01/16/2023 8:42 AM EDT Berto Boyd MD LAB BLOOD ORDERABLES Final Result [facility] [address], [place] [address] [employer] [place] [employer] [address] [place] [address] from Last 3 Months or Most Recently Relevant to Health Maintenance [place] [address] [place] [address] C3 Care Teams Sanitary Engineering Teacher Relationship Specialty Start Date End Date Berto Boyd MD [address] [place] [address] PCP - General Internal Medicine 08/31/18
--- OUTSIDE RECORDS SUMMARY | 2025-05-04 14:22 | XMS_ITS | Encounter Summary ---
Author Organization [employer] Address [address] [facility] 7 [place] [address] Care Team Providers Care Patient Care Nursing Assistant Name Role Phone Berto Boyd MD Primary Care Provider [phone] Encounter Details Date Type Department Care Team (Late Contact Info) Description 04/17/2023 Orders Only [facility] [address] [place] [address] Berto Boyd MD [address] [place] [address] Primary hypertension (Primary Dx) Social History Tobacco [...] [facility] [address] [place] [address] Berto Boyd MD [address] [place] [address] documented as of this encounter Goals Goal [...] documented as of this encounter Care Teams Patient Care Nursing Assistant Relationship Specialty Start Date End Date Berto Boyd MD [address] [place] [address] PCP - General Internal Medicine 08/31/18 documented as of this encounter
--- OUTSIDE RECORDS SUMMARY | 2025-05-04 14:22 | XMS_ITS | Encounter Summary ---
Author Organization [employer] Address [address] [facility] 7t [place] [address] Care Team Providers Care Pricing Specialist Name Role Phone Berto Boyd MD Primary Care Provider [phone] Encounter Details Date Type Department Care Team ([facility] st Contact Info) Description 01/26/2025 Orders Only [facility] MED & PEDS [address] [place], [place] [phone] Berto Boyd MD 505 [place] [address] Chronic pain of both knees; Primary osteoarthritis [...] 1:45 PM EDT Office Visit [facility] MED & PEDS [address] [place] [address] Berto Boyd MD [address] [place] [address] documented as of this encounter Goals Goal [...] documented as of this encounter Care Teams Pricing Specialist Relationship Specialty Start Date End Date Berto Boyd MD [address] [place] [address] PCP - General Internal Medicine 08/31/18 documented as of this encounter
--- OUTSIDE RECORDS SUMMARY | 2025-05-04 14:22 | XMS_ITS | Encounter Summary ---
Author Organization [employer] Address [address] [facility] 7 [place] [address] Care Team Providers Care Supervisor Denture Department Name Role Phone Berto Boyd MD Primary Care Provider [phone]- [phone] Reason for Visit * Reason Onset Date Comments Appointment Request 09/10/2022 Encounter Details Date Type Department Care Team ([facility] st Contact Info) Description 09/10/2022 Telephone [facility] MEDICINE [address] [place] [address] Berto Boyd MD [address] [place] [address] Appointment Request Social History Tobacco Use Types [...] 08/23/22 ForHypotension, DERECK) Please contact pt at [phone] documented in this encounter Plan of Treatment Upcoming Encounters Date Type Department Care Team (Late st Contact Info) Description 06/08/2025 1:45 PM EDT Office Visit [facility] CH[facility] MED & PEDS [address] [place] [address] Berto Boyd MD 505 [place] [address] documented as of this encounter Visit Diagnoses Diagnosis Alcoholism (CMS/[facility])- Primary Other and unspecified alcohol dependence, unspecified drinking behavior Vitamin B12 deficiency Other B-complex deficiencies Idiopathic chronic gout without tophus, unspecified site Primary hypertension Unspecified essential hypertension Left leg pain Pain in soft tissues of limb Vitamin D deficiency documented in this encounter Care Teams Supervisor Denture Department Relationship Specialty Start Date End Date Berto Boyd MD [address] [place] [address] PCP - General Internal Medicine 08/31/18 documented as of this encounter
--- OUTSIDE RECORDS SUMMARY | 2025-05-04 14:22 | XMS_ITS | Encounter Summary ---
Author Organization [employer] Address [address] [facility] 7 [place] [address] Care Team Providers Care Federal Mediation Commissioner Name Role Phone Berto Boyd MD Primary Care Provider [phone] Reason for Visit * Reason Comments Med Refill Encounter Details Date Type Department Care Team ([facility] st Contact Info) Description 01/05/2024 Refill C [facility] MED & PEDS [address] [place], [place] [phone] Berto Boyd MD [address] [place] [address] Primary hypertension Social History Tobacco Use Types [...] Description 06/08/2025 1:45 PM EDT Office Visit [facility] CHC MED & PEDS [address] [place] [address] Berto Boyd MD [address] [place] [address] documented as of this encounter Goals Goal [...] documented as of this encounter Care Teams Federal Mediation Commissioner Relationship Specialty Start Date End Date Berto Boyd MD [address] [place] [address] PCP - General Internal Medicine 08/31/18 documented as of this encounter
--- OUTSIDE RECORDS SUMMARY | 2025-05-04 14:22 | XMS_ITS | Encounter Summary ---
Author Organization [employer] Address [address] [facility] 7t [place] [address] Care Team Providers Care Heel Breaster Name Role Phone Berto Boyd MD Primary Care Provider [phone] Encounter Details Date Type Department Care Team ([facility] st Contact Info) Description 07/13/2023 Orders Only [facility] CHC MED & PEDS [address] [place], [place] [phone] Berto Boyd MD [address] [place] [address] Primary hypertension (Primary Dx); Acute cough Social [...] Description 06/08/2025 1:45 PM EDT Office Visit [facility] CHC MED & PEDS [address] [place], [place] [phone] Berto Boyd MD [address] [place] [address] documented as of this encounter Goals Goal [...] documented as of this encounter Care Teams Heel Breaster Relationship Specialty Start Date End Date Berto Boyd MD [address] [place] [address] PCP - General Internal Medicine 08/31/18 documented as of this encounter
== END 2025-05-04 13:46 | disposition home or self-care (01) ==
LOC: HO.HOS 13:08
PROVIDERS: PCP Internal Medicine; Visit Provider Orthopaedic Surgery
DX: M17.0 Bilateral primary osteoarthritis of knee (principal)
CPT/HCPCS: 20610

== ENCOUNTER → 2025-05-04 13:08 | Outpatient (BNVA) | payer MEDICAID, SELFPAY | PROVIDERS: PCP Internal Medicine; Visit Provider Orthopaedic Surgery | DX: M17.0 Bilateral primary osteoarthritis of knee (principal) | CPT/HCPCS: 20610; J2003; J7323 ==

== ENCOUNTER 2025-05-11 14:30 | Outpatient (AMB) | payer MEDICAID, SELFPAY ==
[2025-05-11 14:52] VITALS: BMI 26.6
--- NOTE | 2025-05-11 14:52 | MHC.OFFVIS ---
Vital Signs 05/11/25 14:52 Height 5 ft 7 in Weight 170 lb BMI 26.6 Intake Visit Reasons: Inj- Bilateral Knee Euflexxa #3 Intake Note: Ollie is a 55 year old man who presents today for his bilateral knee injections, Euflexxa #3 . The patient states that he has gotten mild relief from the 1st 2 sets of injections. He continues with his home exercise program. Allergies Seasonal Allergies Allergy (Mild, Verified 05/11/25 14:53) Runny Nose Medication List - Last Reconciled 05/11/25 by Jonnie Tellez MD acetaminophen 3 tabs PO Q8H PRN allopurinol 1 tab DAILY amlodipine 1 tab PO DAILY atenolol 1 tab PO DAILY cholecalciferol (vitamin D3) 1 tab PO DAILY cyanocobalamin (vitamin B-12) 1 tab DAILY folic acid 1 mg PO DAILY lisinopril 1 tab PO DAILY magnesium oxide 800 mg (2 x 400 mg (241.3 mg magnesium)) PO BIDPC thiamine HCl (vitamin B1) 1 tab DAILY PFSH Medical History Alcohol use disorder, severe, dependence Chest pain Metabolic acidosis, IAG, accumulation of organic acids Hypertension History of alcohol abuse Alcoholic ketoacidosis Rib fracture Surgical History No pertinent past surgical history Family History Other No family history of coronary artery disease Social History Household Members: None Housing: Apartment Do you presently have visiting nurse or other home services: No Alcohol intake: current Alcohol intake frequency: 0-2 drinks per day Alcohol type: beer Patient Tobacco Use Status: Never used Tobacco Tobacco use type: Cigarette Cigarettes Per Day: 5 service: No Current occupational status: unemployed Physical Exam Vital Signs: BMI result Body Mass Index 26.6 Extrem Other: Bilateral knee examination shows minimal effusions, palpable crepitus with range of motion, pain with range of motion, no instability Office Procedures AMB Joint Injection/Aspiration Joint Injection/Aspiration Primary Site: left knee Prep: site was prepped using aseptic technique Injected: 20 mg of (Euflexxa viscosupplementation) and 1% plain lidocaine Procedure: The patient tolerated the procedure well Coding - Large joint Procedure code (CPT) selection complete AMB Joint Injection/Aspiration Joint Injection/Aspiration Primary Site: right knee Prep: site was prepped using aseptic technique Injected: 20 mg of (Euflexxa viscosupplementation) and 1% plain lidocaine Procedure: The patient tolerated the procedure well Coding - Large joint Procedure code (CPT) selection complete Results Reviewed Results Reviewed: X-rays of the patient's bilateral knee show joint space narrowing, subchondral sclerosis, no acute bony abnormalities Assessment & Plan Assessment & Plan (1) Osteoarthritis of left knee: Code(s): M17.12 - Unilateral primary osteoarthritis, left knee Category: Medical (2) Osteoarthritis of right knee: Code(s): M17.11 - Unilateral primary osteoarthritis, right knee Category: Medical Plan Ollie presents with bilateral knee pains due to osteoarthritis. The risks and benefits of a 3rd set of Euflexxa viscosupplementation injections were discussed at length with the patient. The patient wished to proceed. He tolerated the injections well. He will continue with his home exercise program. He will contact me prior to his follow-up appointment in 3 months should any questions or concerns arise. Feel free to call me at any time should questions regarding his orthopedic management arise. I spent 22 minutes in reviewing the patient's records and imaging studies, seeing the patient and documenting in the medical record. Orders: Orders AMB Joint Injection/Aspiration Today M17.11 - Unilateral primary osteoarthritis, right knee AMB Joint Injection/Aspiration Today M17.12 - Unilateral primary osteoarthritis, left knee Coding Level of Care Code Procedure Only Diagnoses Osteoarthritis of left knee M17.12 Osteoarthritis of right knee M17.11 CPT Codes Coding - 74562 Large joint: 93068 - Large joint ([id number]) Coding - 05030 Large joint: 77069 - Large joint ([id number])
--- OUTSIDE RECORDS SUMMARY | 2025-05-11 18:12 | XMS_ITS | Clinical Summary ---
Author Organization [employer] Address [address] [place] [address] 7t [place] [address] Care Team Providers Care Manager Configuration Name Role Phone Berto Boyd MD Primary [...] Type Department Care Team Description 04/25/2025 Refill [facility] MED & PEDS [address] [place] [address] Berto Boyd MD Alcohol dependence, uncomplicated (CMS/HCC) [...] Upcoming Encounters Date Type Department Care Team ([facility] st Contact Info) Description 06/08/2025 1:45 PM EDT Office Visit [facility] MED & PEDS [address] [place] [address] Berto Boyd MD [address] [place], [place] [phone] Health Maintenance Due Date Last Done Comments [...] Negative Negative 12/03/19 24 1:12 AM EDT [facility] (CLIA #:[id number]) Comment: NEGATIVE TEST RESULT. A negative Cologuard [...] Garcia. et al, N Engl J Med 2014;370(14):0688-9688) The normal value (reference range) for this assay is negative. COLOGUARD RE-SCREENING RECOMMENDATION: Periodic colorectal cancer screening is an important part of preventive healthcare for asymptomatic individuals at average risk for colorectal cancer. Following a negative Cologuard result, the [place] Cancer Society and U.S. Multi-Society Task Force screening guidelines recommend a Cologuard re-screening interval of 3 years. References: [place] Cancer Society Guideline for Colorectal Cancer Screening: https://www.cancer.org/cancer/hoago-fdvjzx-pgcudy/opluwwryd-zqgklvxsb-lrgqtzn/ac s-rec ommendations.html.; Bryce QURESHI, Roman ALMANZA, Myrna GoodmanK, Colorectal Cancer Screening: Recommendations for Physicians and Patients from the U.S. Multi-Society Task Force on Colorectal Cancer Screening , Am J Gastroenterology 2017; 112:3324-5614. TEST DESCRIPTION: Composite algorithmic analysis of stool [...] Garcia. et al, N Engl J Med 2014;370(14):6810-7123.) Cologuard may produce a false negative or false positive result (no colorectal cancer or precancerous polyp present at colonoscopy follow up). A negative Cologuard test result does not guarantee the absence of CRC or advanced adenoma (pre-cancer). The current Cologuard screening interval is every 3 years. ([place] Cancer Society and U.S. Multi-Society Task Force). Cologuard performance data in a 10,000 patient pivotal study using colonoscopy as the reference method can be accessed at the following location: www.BrightRoll/results. Additional description of the Cologuard test process, warnings and precautions can be found at www.UBIKODrd.YouEarnedIt. Stool specimen (specimen) 11/26/2023 9:00 PM EDT 11/28/2023 12:00 PM EDT Berto Boyd MD LAB MOLECULAR DIAGNOSTICS O RDERABLES Final Result [facility] (CLIA #:[id number]) Efren AguirreShah[place] [address], * (ABNORMAL) Hepatitis Panel, General (01/16/2023 8:42 AM EDT) Hepatitis A Antibody Total REACTIVE( A) NON-REACT [employer] [facility] Comment: For additional information, please refer to http://education.Virtual Instruments Corporation/faq/CIA459 (This link is being provided for informational/ educational purposes only.) Hepatitis B Surface Antibody QL NON-REACT SHERICE NON-REACT [employer] Hepatitis B Surface Ag NON-REACT SHERICE NON-REACT SHER[employer] [employer] Hepatitis B Core Antibody Total NON-REACT SHERICE NON-REACT SH[employer] [place] [employer] Hepatitis C Antibody NON-REACT SHERICE NON-REACT SH[employer] [employer] Index 0.08 <1.00 [facility] [place] [employer] Comment: HCV antibody was non-reactive. There is no laboratory evidence of HCV infection. In most cases, no further action is required. However, if recent HCV exposure is suspected, a test for HCV RNA (test code 95696) is suggested. For additional information please refer to http://education.Virtual Instruments Corporation/faq/VIT89b0 (This link is being provided for informational/ educational purposes only.) 01/16/2023 8:42 AM EDT 01/16/2023 8:42 AM EDT Berto Boyd MD LAB BLOOD ORDERABLES Final Result [facility] [address], [place] [address] [employer] [employer] [address] [place] [address] from Last 3 Months or Most Recently Relevant to Health Maintenance Insurance [place] [address] C3 Care Teams Manager Configuration Relationship Specialty Start Date End Date Berto Boyd MD [address] [place] [address] PCP - General Internal Medicine 08/31/18
--- OUTSIDE RECORDS SUMMARY | 2025-05-11 18:12 | XMS_ITS | Encounter Summary ---
Author Organization [employer] Address [address] [facility] 7 [place] [address] Care Team Providers Care Tonger Name Role Phone Berto Boyd MD Primary Care Provider [phone]- [phone] Reason for Visit * Reason Onset Date Comments Appointment Request 09/10/2022 Encounter Details Date Type Department Care Team ([facility] st Contact Info) Description 09/10/2022 Telephone [facility] MEDICINE [address] [place] [address] Berto Boyd MD [address] [place] [address] Appointment Request Social History Tobacco Use Types [...] 08/23/22 ForHypotension, DERECK) Please contact pt at [phone] documented in this encounter Plan of Treatment Upcoming Encounters Date Type Department Care Team (Late st Contact Info) Description 06/08/2025 1:45 PM EDT Office Visit [facility] MED & PEDS [address] [place] [address] Berto Boyd MD [address] [place] [address] documented as of this encounter Visit Diagnoses Diagnosis Alcoholism (CMS/[facility])- Primary Other and unspecified alcohol dependence, unspecified drinking behavior Vitamin B12 deficiency Other B-complex deficiencies Idiopathic chronic gout without tophus, unspecified site Primary hypertension Unspecified essential hypertension Left leg pain Pain in soft tissues of limb Vitamin D deficiency documented in this encounter Care Teams Tonger Relationship Specialty Start Date End Date Berto Boyd MD [address] [place] [address] PCP - General Internal Medicine 08/31/18 documented as of this encounter
--- OUTSIDE RECORDS SUMMARY | 2025-05-11 18:12 | XMS_ITS | Encounter Summary ---
Author Organization [employer] Address [address] [facility] 7 [place] [address] Care Team Providers Care Christian Counselor Name Role Phone Berto Boyd MD Primary Care Provider [phone] Encounter Details Date Type Department Care Team (Late Contact Info) Description 04/17/2023 Orders Only [facility] MED & PEDS [address] [place] [address] Berto Boyd MD [address] [place] [address] Primary hypertension (Primary Dx) Social History Tobacco [...] Description 06/08/2025 1:45 PM EDT Office Visit [facility] MED & PEDS [address] [place] [address] Berto Boyd MD [address] [place] [address] documented as of this encounter Goals Goal [...] documented as of this encounter Care Teams Christian Counselor Relationship Specialty Start Date End Date Berto Boyd MD [address] [place] [address] PCP - General Internal Medicine 08/31/18 documented as of this encounter
--- OUTSIDE RECORDS SUMMARY | 2025-05-11 18:12 | XMS_ITS | Encounter Summary ---
Author Organization [email or web address] Address [address] [facility] 7t [place] [address] Care Team Providers Care Supervisor Orchard Name Role Phone Berto Boyd MD Primary Care Provider [phone] Encounter Details Date Type Department Care Team ([facility] st Contact Info) Description 07/13/2023 Orders Only [facility] MED & PEDS [address] [place], [place] [phone] Berto Boyd MD [address] [place] [address] Primary hypertension (Primary Dx); Acute cough Social [...] 1:45 PM EDT Office Visit [facility] MED & PEDS [address] [place], [place] [phone] Berto Boyd MD [address] [place] [address] documented as of this encounter Goals Goal [...] documented as of this encounter Care Teams Supervisor Orchard Relationship Specialty Start Date End Date Berto Boyd MD [address] [place] [address] PCP - General Internal Medicine 08/31/18 documented as of this encounter
--- OUTSIDE RECORDS SUMMARY | 2025-05-11 18:12 | XMS_ITS | Encounter Summary ---
Author Organization [employer] Address [address] [facility] 7 [place] [address] Care Team Providers Care Clearing Tub Worker Name Role Phone Berto Boyd MD Primary Care Provider [phone] Reason for Visit * Reason Comments Med Refill Encounter Details Date Type Department Care Team ([facility] st Contact Info) Description 01/05/2024 Refill C [facility] [address] [place], [place] [phone] Berto Boyd MD [address] [place] [address] Primary hypertension Social History Tobacco Use Types [...] 1:45 PM EDT Office Visit [facility] [address] [place] [address] Berto Boyd MD [address] [place] [address] documented as of this encounter Goals Goal [...] documented as of this encounter Care Teams Clearing Tub Worker Relationship Specialty Start Date End Date Berto Boyd MD [address] [place] [address] PCP - General Internal Medicine 08/31/18 documented as of this encounter
--- OUTSIDE RECORDS SUMMARY | 2025-05-11 18:12 | XMS_ITS | Encounter Summary ---
Author Organization [employer] Address [address] [facility] [address] [place] [address] Care Team Providers Care Airport Skilled Maintenance Supervisor Name Role Phone Berto Boyd MD Primary Care Provider [phone] Encounter Details Date Type Department Care Team ([facility] st Contact Info) Description 01/26/2025 Orders Only [facility] [address] [place], [place] [phone] Berto Boyd MD [address] [place] [address] Chronic pain of both knees; Primary osteoarthritis [...] Description 06/08/2025 1:45 PM EDT Office Visit [facility] [address] [place] [address] Berto Boyd MD [address] [place] [address] documented as of this encounter Goals Goal [...] documented as of this encounter Care Teams Airport Skilled Maintenance Supervisor Relationship Specialty Start Date End Date Berto Boyd MD [address] [place] [id number] PCP - General Internal Medicine 08/31/18 documented as of this encounter
== END 2025-05-11 15:17 | disposition home or self-care (01) ==
LOC: HO.HOS 14:30
PROVIDERS: PCP Internal Medicine; Visit Provider Orthopaedic Surgery
DX: M17.0 Bilateral primary osteoarthritis of knee (principal)
CPT/HCPCS: 20610

== ENCOUNTER → 2025-05-11 14:30 | Outpatient (BNVA) | payer MEDICAID, SELFPAY | PROVIDERS: PCP Internal Medicine; Visit Provider Orthopaedic Surgery | DX: M17.0 Bilateral primary osteoarthritis of knee (principal) | CPT/HCPCS: 20610; J2003; J7323 ==